=== PATIENT | male | born 1955 | race Hispanic/Latino ===

== ENCOUNTER → 2019-06-10 | Outpatient (CLI) | payer MEDICARE, OTHER | END | disposition home or self-care (01) | LOC: SHCH 15:03 | PROVIDERS: ATTEND Internal Medicine Cardiovascular Disease | DX: R09.89 Other specified symptoms and signs involving the circulatory and respiratory systems (principal) | CPT/HCPCS: 93880 ==

== ENCOUNTER 2021-06-15 05:32 | Day surgery (SDC) | payer OTHER ==
[2021-06-14 13:44] LABS: BASOPHILS % (AUTO) 0.6 % (0.0-5.0); EOSINOPHILS % (AUTO) 0.3 % (0.0-8.0); HEMATOCRIT 50.1 % (42-54); LYMPHOCYTES % (AUTO) 16.4 % (21.0-51.0); MEAN CORPUSCULAR HEMOGLOBIN 31.4 pg (27.0-33.0); MEAN CORPUSCULAR HGB CONC 33.7 g/dL (32.0-36.0); MEAN CORPUSCULAR VOLUME 93.1 fL (79-99); MONOCYTES % (AUTO) 7.5 % (3.0-13.0); NEUTROPHILS % (AUTO) 74.7 % (40.0-77.0); PLATELET COUNT (AUTO) 221 K/uL (130-400); RED BLOOD CELL COUNT(AUTO) 5.38 MIL/uL (4.50-6.20); RED CELL DISTRIBUTION WIDTH 13.3 % (11.0-15.5); WHITE BLOOD COUNT (AUTO) 8.7 K/uL (4.8-10.8)
[2021-06-14 13:48] LABS: APPEARANCE,URINE Clear (CLEAR); BILIRUBIN,URINE Negative (NEGATIVE); COLOR,URINE Yellow (YELLOW); GLUCOSE, URINE (UA) Negative (NEGATIVE); KETONES,URINE Negative (NEGATIVE); LEUKOCYTE ESTERASE ,URINE Negative (NEGATIVE); NITRATE,URINE Negative (NEGATIVE); OCCULT BLOOD,URINE Negative (NEGATIVE); PROTEIN,URINE Negative (NEGATIVE)
[2021-06-14 13:53] LABS: INR 1.04 (0.85-1.15); PROTHROMBIN TIME 11.3 SEC (9.6-11.6)
[2021-06-14 13:54] LABS: PARTIAL THROMBOPLASTIN TIME 28.1 SEC (26.3-35.5)
[2021-06-14 13:56] LABS: CREATININE 1.3 mg/dL (0.5-1.5); POTASSIUM 4.4 mmol/L (3.5-5.1)
[2021-06-14 14:35] VITALS: BP 136/73
[~2021-06-15] VITALS: Ht 165.1 cm; Wt 92.6 kg
[2021-06-15] VITALS (10 sets, daily range): BP systolic 100–141; BP diastolic 58–87
[~2021-06-15 05:32] MED LIST: ENAL10TA18 PO; VITAMIN D PO
[2021-06-15] MEDS ORDERED: 0.9% NACL 500ML IV.SOLN 500 ML IV SCH (06:00)
[2021-06-15] MEDS ORDERED: 0.9%NACL 1000ML 1,000 ML IV ONE (06:02)
[2021-06-15] MEDS ORDERED: NITROGLYCERIN 50MG VIAL IV ONE (07:12)
[2021-06-15] MEDS ORDERED: SODIUM BICARB 50MEQ 50ML VIAL 50 ML ONE (07:12)
[2021-06-15] MEDS ORDERED: IOHEXOL-350 50ML VIAL IV ONE (07:12)
[2021-06-15] MEDS ORDERED: IOHEXOL 350 MG/ML 100ML INFUS..BTL IV ONE (07:13)
[2021-06-15] MEDS ORDERED: LIDOCAINE HCL 400MG/20ML VIAL ONE (07:13)
[2021-06-15] MEDS ORDERED: MIDAZOLAM HCL 1 MG/ML 2ML VIAL ONE (07:13)
[2021-06-15] MEDS ORDERED: MEPERIDINE-PF 25 MG/ML SYG ONE (07:13)
[2021-06-15] MEDS ORDERED: IOHEXOL-350 75 ML VIAL IV ONE (08:10)
[2021-06-15] MEDS ORDERED: 0.9%NACL 10ML VIAL IVP SCH (09:00)
== END 2021-06-15 13:10 | disposition home or self-care (01) ==
LOC: DAH 05:32
PROVIDERS: ATTEND Internal Medicine Cardiovascular Disease
DX: I35.0 Nonrheumatic aortic (valve) stenosis (principal); I20.9 Angina pectoris, unspecified; J44.9 Chronic obstructive pulmonary disease, unspecified; I11.0 Hypertensive heart disease with heart failure; I50.42 Chronic combined systolic (congestive) and diastolic (congestive) heart failure; Z82.49 Family history of ischemic heart disease and other diseases of the circulatory system; Z85.038 Personal history of other malignant neoplasm of large intestine; Z92.3 Personal history of irradiation; Z92.21 Personal history of antineoplastic chemotherapy; Z79.01 Long term (current) use of anticoagulants; Z79.899 Other long term (current) drug therapy; Z98.890 Other specified postprocedural states
CPT/HCPCS: 36415; 71045; 80048; 81003; 85025; 85610; 85730; 93005; 93460; A4215; A4216; A4221; A4222; A4223 ×3; A4606; A4663; C1760; C1769 ×2; C1893; C1894; J1644; J2175; J2250; J3490 ×3; J7030; Q9965; Q9967 ×2; 99156; 99157

== ENCOUNTER → 2021-08-02 | Outpatient (CLI) | payer OTHER ==
[~2021-08-02] MED LIST changes: -ENAL10TA18 PO
[2021-08-02 12:32] LABS: CREATININE 1.3 mg/dL (0.5-1.5)
== END | disposition home or self-care (01) ==
LOC: DAH 09:49
PROVIDERS: ATTEND Internal Medicine Cardiovascular Disease
DX: I35.0 Nonrheumatic aortic (valve) stenosis (principal)
CPT/HCPCS: 36415; 82565; 84520

== ENCOUNTER → 2021-11-29 | Outpatient (CLI) | payer OTHER ==
[~2021-11-29] MED LIST changes: +AEC81 PO; +CLOP75TA14 PO; +ERGO2000 PO; +FURO-151 PO; +METO25TA6 PO; -VITAMIN D PO
== END | disposition home or self-care (01) ==
LOC: SHCH 08:46
PROVIDERS: ATTEND Internal Medicine Cardiovascular Disease
DX: I11.9 Hypertensive heart disease without heart failure (principal); I34.8 Other nonrheumatic mitral valve disorders
CPT/HCPCS: 93306

== ENCOUNTER → 2022-06-09 | Outpatient (CLI) | payer OTHER ==
[~2022-06-09] MED LIST changes: +ALBUMIN (HUMAN) 25% 200 ML IV ONE; +CLOP-31 PO; -CLOP75TA14 PO; +LIDOCAINE HCL 1% 20 ML VIAL ONE
[2022-06-09 08:25] LABS: HEMATOCRIT 44.4 % (42-54); MEAN CORPUSCULAR HEMOGLOBIN 30.4 pg (27.0-33.0); MEAN CORPUSCULAR HGB CONC 31.8 g/dL (32.0-36.0); MEAN CORPUSCULAR VOLUME 95.7 fL (79-99); PLATELET COUNT (AUTO) 149 K/uL (130-400); RED BLOOD CELL COUNT(AUTO) 4.64 MIL/uL (4.50-6.20); RED CELL DISTRIBUTION WIDTH 16.8 % (11.0-15.5)
[2022-06-09 08:50] LABS: INR 1.25 (0.85-1.15); PROTHROMBIN TIME 13.5 SEC (9.6-11.6)
[2022-06-09 08:51] LABS: PARTIAL THROMBOPLASTIN TIME 31.6 SEC (26.3-35.5)
[2022-06-09 08:54] LABS: ALBUMIN 3.2 g/dL (3.5-5.0); CREATININE 1.4 mg/dL (0.5-1.5); POTASSIUM 3.6 mmol/L (3.5-5.1); TOTAL PROTEIN, SERUM 6.9 g/dL (6.0-8.3)
[2022-06-09 08:56] LABS: LYMPHOCYTES % (MANUAL) 22 % (22-44); MAN.DIFF COMMENT-IMPRESSION MANUAL DIFFERENTIAL; MONOCYTES % (MANUAL) 10 % (2-9); PLATELET MORPHOLOGY COMMENT ADEQUATE; SEGMENTED NEUTROPHILS % 68 % (40-70)
[2022-06-09 13:34] LABS: ALBUMIN,BODY FLUID 1.2 g/dL
[2022-06-09 14:51] LABS: SPECIMENTYPE,BODY FLUID ASCITES; TOTAL VOLUME,BODY FLUID 500 mL
[2022-06-09 14:52] LABS: APPEARANCE BODY FLUID CLOUDY (CLEAR); BODY FLUID RBC 7450 /cu. mm.; BODY FLUID WBC 213 /cu. mm.; COLOR,BODY FLUID DARK YELLOW (LT YELLOW)
[2022-06-09 15:02] LABS: BF LYMPHOCYTE 41 %; BF MONOCYTE 45 %
== END | disposition home or self-care (01) ==
LOC: RAH 08:00
PROVIDERS: ATTEND Internal Medicine Gastroenterology
DX: R18.8 Other ascites (principal); I10 Essential (primary) hypertension; Z79.01 Long term (current) use of anticoagulants; Z79.899 Other long term (current) drug therapy
CPT/HCPCS: 49083; 84157; 80053; 85025; 89051; 85610; 85730; 87071; 87076; 87205; 82042; 36415; 88305; 88342; 88112; 88341; P9046; C1729

== ENCOUNTER → 2022-10-16 | Outpatient (CLI) | payer OTHER ==
[~2022-10-16] MED LIST changes: -ALBUMIN (HUMAN) 25% 200 ML IV ONE; -LIDOCAINE HCL 1% 20 ML VIAL ONE
[2022-10-16 11:27] LABS: BASOPHILS % (AUTO) 0.7 % (0.0-5.0); EOSINOPHILS % (AUTO) 0.9 % (0.0-8.0); HEMATOCRIT 28.7 % (42-54); LYMPHOCYTES % (AUTO) 17.3 % (21.0-51.0); MEAN CORPUSCULAR HEMOGLOBIN 23.2 pg (27.0-33.0); MEAN CORPUSCULAR HGB CONC 27.2 g/dL (32.0-36.0); MEAN CORPUSCULAR VOLUME 85.4 fL (79-99); NEUTROPHILS % (AUTO) 65.7 % (40.0-77.0); PLATELET COUNT (AUTO) 138 K/uL (130-400); RED BLOOD CELL COUNT(AUTO) 3.36 MIL/uL (4.50-6.20); WHITE BLOOD COUNT (AUTO) 5.6 K/uL (4.8-10.8)
== END | disposition home or self-care (01) ==
LOC: LAB 10:44
PROVIDERS: ATTEND Internal Medicine Gastroenterology
DX: J90 Pleural effusion, not elsewhere classified (principal); M47.815 Spondylosis without myelopathy or radiculopathy, thoracolumbar region; K74.60 Unspecified cirrhosis of liver
CPT/HCPCS: 36415; 71046; 82105; 85025

== ENCOUNTER 2022-10-19 13:13 | Emergency (ER) | payer OTHER ==
[~2022-10-19] VITALS: Ht 165.1 cm; Wt 93.4 kg
[2022-10-19 13:28] VITALS: BP 137/68
[2022-10-20] MEDS ORDERED: ATOR20TA65 PO (16:07)
[2022-10-20] MEDS ORDERED: METO2.5T2 PO (16:07)
== END 2022-10-19 14:03 | disposition left against medical advice (07) ==
LOC: EDH 13:13
DX: R18.8 Other ascites (principal); I10 Essential (primary) hypertension; Z90.49 Acquired absence of other specified parts of digestive tract; Z85.048 Personal history of other malignant neoplasm of rectum, rectosigmoid junction, and anus; Z79.899 Other long term (current) drug therapy

== ENCOUNTER 2022-10-20 08:09 | Inpatient (IN) | payer OTHER ==
[~2022-10-20] VITALS: Ht 172.7 cm; Wt 85.8 kg
[2022-10-20 09:35] LABS: BASOPHILS % (AUTO) 0.9 % (0.0-5.0); EOSINOPHILS % (AUTO) 0.3 % (0.0-8.0); LYMPHOCYTES % (AUTO) 16.2 % (21.0-51.0); MEAN CORPUSCULAR HEMOGLOBIN 22.9 pg (27.0-33.0); MEAN CORPUSCULAR HGB CONC 27.3 g/dL (32.0-36.0); MEAN CORPUSCULAR VOLUME 83.8 fL (79-99); MONOCYTES % (AUTO) 15.5 % (3.0-13.0); NEUTROPHILS % (AUTO) 66.8 % (40.0-77.0); NUCLEATED RED BLOOD CELLS 0.5 % (0.0-0.19); PLATELET COUNT (AUTO) 195 K/uL (130-400); RED BLOOD CELL COUNT(AUTO) 3.58 MIL/uL (4.50-6.20); RED CELL DISTRIBUTION WIDTH 19.1 % (11.0-15.5); WHITE BLOOD COUNT (AUTO) 5.8 K/uL (4.8-10.8)
[2022-10-20 09:46] LABS: INR 1.39 (0.85-1.15); PROTHROMBIN TIME 14.9 SEC (9.6-11.6)
[2022-10-20 09:47] LABS: PARTIAL THROMBOPLASTIN TIME 30.6 SEC (26.3-35.5)
[2022-10-20 09:50] LABS: ALBUMIN 2.6 g/dL (3.5-5.0); CREATININE 2.1 mg/dL (0.5-1.5); POTASSIUM 4.3 mmol/L (3.5-5.1); TOTAL PROTEIN, SERUM 6.3 g/dL (6.0-8.3)
[2022-10-20 09:56] LABS: B-TYPE NATRIURETIC PEPTIDE 1180 pg/mL (0-100)
[2022-10-20] MEDS ORDERED: MORPHINE 2 MG SYG IVP PRN (10:00)
[2022-10-20] MEDS ORDERED: ZOSYN 3.375GM +NS 50ML IVPB SCH (10:00)
[2022-10-20] MEDS ORDERED: RENAL DOSE IV PRN (10:00)
[2022-10-20] MEDS ORDERED: ACETAMINOPHEN 650 MG SUPPOSITORY RC PRN (10:00)
[2022-10-20] MEDS ORDERED: HYDRALAZINE 20MG/ML VIAL IV PRN (10:00)
[2022-10-20] MEDS ORDERED: LACTULOSE 20 GM/30 ML UDCUP PO PRN (10:00)
[2022-10-20] MEDS ORDERED: FUROSEMIDE 40MG VIAL IV SCH (10:00)
[2022-10-20] MEDS ORDERED: ONDANSETRON 4MG INJ IVP PRN (10:00)
[2022-10-20] MEDS ORDERED: CLONIDINE HCL 0.1 MG TABLET PO PRN ×2 (10:00)
[2022-10-20 10:28] LABS: ABG BASE EXCESS -1.4 mmol/L (-2.0-3.0); ABG HCO3 23.1 mmol/L (21.0-28.0); ABG OXYGEN SATURATION 91.4 % (95.0-99.0); ABG PCO2 38 mmHg (35-48)
[2022-10-20] MEDS: ZOSYN 3.375GM+NS 50ML 50 ML IVPB SCH ×3 (10:39→23:26)
[2022-10-20 10:42] LABS: APPEARANCE,URINE CLOUDY (CLEAR); BILIRUBIN,URINE 0.5 mg/dL (NEGATIVE); COLOR,URINE DARK-YELLOW (YELLOW); GLUCOSE, URINE (UA) NEGATIVE (NEGATIVE); KETONES,URINE NEGATIVE (NEGATIVE); LEUKOCYTE ESTERASE ,URINE NEGATIVE Leu/uL (NEGATIVE); NITRATE,URINE NEGATIVE (NEGATIVE); OCCULT BLOOD,URINE NEGATIVE (NEGATIVE); PH,URINE 5.5 (5.0-8.0); PROTEIN,URINE 100 mg/dL (NEGATIVE); UROBILINOGEN,URINE 6 mg/dL (0.2-1.0)
[2022-10-20 10:45] LABS: BACTERIA,URINE RARE /HPF (None Seen); MUCUS,URINE RARE LPF (None Seen); OTHER CASTS, URINE 1 /LPF (None Seen); RBC,URINE 0-1 /HPF (0-1)
[2022-10-20 10:47] LABS: AMPHET/METH SCREEN,URINE NEGATIVE (NEGATIVE); BARBITURATE SCREEN, URINE NEGATIVE (NEGATIVE); BENZODIAZEPINES SCREEN,URINE NEGATIVE (NEGATIVE); CANNABINOID SCREEN,URINE NEGATIVE (NEGATIVE); COCAINE SCREEN,URINE NEGATIVE (NEGATIVE); OPIATE SCREEN,URINE NEGATIVE (NEGATIVE); PHENCYCLIDINE SCREEN,URINE NEGATIVE (NEGATIVE)
[2022-10-20] MEDS ORDERED: 0.9%NACL 50ML IV SCH (11:00)
[2022-10-20] MEDS: INSULIN HUMULIN R 100 UNIT/ML 3ML SQ SCH ×3 (11:30→21:00)
[2022-10-20] MEDS ORDERED: LIDOCAINE HCL MPF 1% 5ML VIAL ONE (12:28)
[2022-10-20 16:07] LABS: BODY FLUID RBC 179 /cu. mm.; BODY FLUID WBC 82 /cu. mm.
[2022-10-20] MEDS ORDERED: ATOR20TA65 PO (16:07)
[2022-10-20] MEDS ORDERED: METO2.5T2 PO (16:07)
[2022-10-20 16:38] LABS: BF LYMPHOCYTE 34 %; BF MESOTHELIAL 19 %; BF MONOCYTE 6 %
[2022-10-20 16:41] LABS: SPECIMENTYPE,BODY FLUID PLEURAL
[2022-10-20 16:42] LABS: APPEARANCE BODY FLUID CLEAR (CLEAR); COLOR,BODY FLUID YELLOW (LT YELLOW); TOTAL VOLUME,BODY FLUID 1800 mL
[2022-10-20] MEDS: FUROSEMIDE 20MG VIAL IV SCH (16:43)
[2022-10-20 20:00] VITALS: BP 117/54
[2022-10-20] MEDS: FAMOTIDINE 20MG TAB PO SCH (23:25)
[2022-10-20] MEDS: METOPROLOL TARTRATE 25 MG TAB PO SCH (23:26)
[2022-10-21] VITALS (7 sets, daily range): BP systolic 109–121; BP diastolic 41–53
[2022-10-21] MEDS: FUROSEMIDE 20MG VIAL IV SCH ×3 (00:21→16:02)
[2022-10-21 06:38] LABS: BASOPHILS % (AUTO) 0.5 % (0.0-5.0); EOSINOPHILS % (AUTO) 0.4 % (0.0-8.0); HEMATOCRIT 28.5 % (42-54); LYMPHOCYTES % (AUTO) 11.3 % (21.0-51.0); MEAN CORPUSCULAR HEMOGLOBIN 23.1 pg (27.0-33.0); MEAN CORPUSCULAR HGB CONC 27.4 g/dL (32.0-36.0); MEAN CORPUSCULAR VOLUME 84.3 fL (79-99); MONOCYTES % (AUTO) 14.7 % (3.0-13.0); NEUTROPHILS % (AUTO) 72.9 % (40.0-77.0); NUCLEATED RED BLOOD CELLS 0.2 % (0.0-0.19); PLATELET COUNT (AUTO) 184 K/uL (130-400); RED BLOOD CELL COUNT(AUTO) 3.38 MIL/uL (4.50-6.20); RED CELL DISTRIBUTION WIDTH 18.7 % (11.0-15.5); WHITE BLOOD COUNT (AUTO) 8.4 K/uL (4.8-10.8)
[2022-10-21 07:03] LABS: % IRON SATURATION 3.5 % (30-44)
[2022-10-21 07:08] LABS: CREATININE 2.2 mg/dL (0.5-1.5); PHOSPHORUS 4.1 mg/dL (2.5-4.9); POTASSIUM 3.7 mmol/L (3.5-5.1); THYROID STIMULATING HORMONE 2.12 uIU/mL (0.36-3.74); URIC ACID 6.5 mg/dL (2.6-7.2)
[2022-10-21] MEDS: INSULIN HUMULIN R 100 UNIT/ML 3ML SQ SCH ×4 (07:30→21:00)
[2022-10-21 08:40] LABS: AMMONIA < 10 umol/L (11-32); THYROID STIMULATING HORMONE 2.21 uIU/mL (0.36-3.74)
[2022-10-21] MEDS: ASPIRIN 81 MG EC TAB PO SCH (08:52)
[2022-10-21] MEDS: METOLAZONE 2.5 MG TABLET PO SCH (08:52)
[2022-10-21] MEDS: POLYETHYLENE GLYCOL 3350 17 GM POWD.PACK PO SCH (08:52)
[2022-10-21] MEDS: ATORVASTATIN 20 MG TABLET PO SCH (08:52)
[2022-10-21] MEDS: METOPROLOL TARTRATE 25 MG TAB PO SCH ×2 (08:52→20:37)
[2022-10-21] MEDS: ENOXAPARIN SODIUM 30 MG/0.3 ML SQ SCH (08:53)
[2022-10-21] MEDS ORDERED: CLOPIDOGREL 75MG TAB PO SCH (09:00)
[2022-10-21] MEDS: ZOSYN 3.375GM+NS 50ML 50 ML IVPB SCH ×2 (10:51→18:12)
[2022-10-21] MEDS ORDERED: METOLAZONE 2.5 MG TABLET PO ONE (11:00)
[2022-10-21 17:43] LABS: APPEARANCE,URINE CLEAR (CLEAR); BILIRUBIN,URINE NEGATIVE (NEGATIVE); COLOR,URINE LIGHT-YELLOW (YELLOW); GLUCOSE, URINE (UA) NEGATIVE (NEGATIVE); KETONES,URINE NEGATIVE (NEGATIVE); LEUKOCYTE ESTERASE ,URINE NEGATIVE Leu/uL (NEGATIVE); NITRATE,URINE NEGATIVE (NEGATIVE); PROTEIN,URINE NEGATIVE (NEGATIVE); UROBILINOGEN,URINE 0.2 mg/dL (0.2-1.0)
[2022-10-21 18:31] LABS: WBC,URINE 0-1 /HPF (0-1)
[2022-10-21] MEDS: FAMOTIDINE 20MG TAB PO SCH (20:38)
[2022-10-22] VITALS: BP 125/43
[2022-10-22] MEDS: FUROSEMIDE 20MG VIAL IV SCH ×3 (00:34→20:11)
[2022-10-22] MEDS: ZOSYN 3.375GM+NS 50ML 50 ML IVPB SCH ×3 (03:54→17:39)
[2022-10-22 04:00] VITALS: BP 114/45
[2022-10-22 06:27] LABS: HEMATOCRIT 26.5 % (42-54); MEAN CORPUSCULAR HEMOGLOBIN 22.9 pg (27.0-33.0); MEAN CORPUSCULAR HGB CONC 26.8 g/dL (32.0-36.0); MEAN CORPUSCULAR VOLUME 85.5 fL (79-99); NUCLEATED RED BLOOD CELLS 0.3 % (0.0-0.19); PLATELET COUNT (AUTO) 162 K/uL (130-400); RED CELL DISTRIBUTION WIDTH 18.6 % (11.0-15.5); WHITE BLOOD COUNT (AUTO) 7.3 K/uL (4.8-10.8)
[2022-10-22 06:39] LABS: ALBUMIN 2.4 g/dL (3.5-5.0); CREATININE 2.4 mg/dL (0.5-1.5); MAGNESIUM 1.9 mg/dL (1.80-2.40); PHOSPHORUS 4.4 mg/dL (2.5-4.9); POTASSIUM 3.4 mmol/L (3.5-5.1); TOTAL PROTEIN, SERUM 5.6 g/dL (6.0-8.3)
[2022-10-22] MEDS: INSULIN HUMULIN R 100 UNIT/ML 3ML SQ SCH ×4 (06:56→20:12)
[2022-10-22 07:20] VITALS: BP 114/41
[2022-10-22 08:36] LABS: LYMPHOCYTES % (MANUAL) 10 % (22-44); MONOCYTES % (MANUAL) 12 % (2-9); SEGMENTED NEUTROPHILS % 78 % (40-70)
[2022-10-22 08:37] LABS: MAN.DIFF COMMENT-IMPRESSION MANUAL DIFFERENTIAL; PLATELET MORPHOLOGY COMMENT ADEQUATE
[2022-10-22] MEDS: Vitamin B Complex/Vit C/Folic Acid PO SCH (09:48)
[2022-10-22] MEDS: ATORVASTATIN 20 MG TABLET PO SCH (09:48)
[2022-10-22] MEDS: POLYETHYLENE GLYCOL 3350 17 GM POWD.PACK PO SCH (09:48)
[2022-10-22] MEDS: ENOXAPARIN SODIUM 30 MG/0.3 ML SQ SCH (09:48)
[2022-10-22] MEDS: METOPROLOL TARTRATE 25 MG TAB PO SCH ×2 (09:49→20:07)
[2022-10-22] MEDS: METOLAZONE 2.5 MG TABLET PO SCH (09:49)
[2022-10-22] MEDS: ASPIRIN 81 MG EC TAB PO SCH (09:49)
[2022-10-22] MEDS ORDERED: LIDOCAINE HCL-MPF 1% 2ML VIAL IV PRN (15:00)
[2022-10-22] MEDS ORDERED: POTASSIUM CHLORIDE 10MEQ/100ML 100 ML IV PRN (15:00)
[2022-10-22] MEDS ORDERED: IRON SUCROSE COMPLEX 100 MG/5 ML VIAL IVP SCH (15:00)
[2022-10-22] MEDS: KCL 20 MEQ ERTAB PO PRN ×2 (15:33→18:49)
[2022-10-22 16:06] VITALS: BP 111/41
[2022-10-22] MEDS ORDERED: COMPOUND IV MISC 1 EACH IVSOLN MISC PRN (16:30)
[2022-10-22] MEDS ORDERED: OCTREOTIDE ACETATE 100 MCG/ML AMP IV SCH (17:00)
[2022-10-22 20:00] VITALS: BP 122/58
[2022-10-22] MEDS: MIDODRINE HCL 5 MG TABLET PO SCH (20:07)
[2022-10-22] MEDS: FAMOTIDINE 20MG TAB PO SCH (20:07)
[2022-10-22] MEDS: IRON SUCROSE COMPLEX 300 MG in 0.9% NACL 250ML 250 ML IVP SCH (20:08)
[2022-10-23] VITALS (7 sets, daily range): BP systolic 90–139; BP diastolic 42–60
[2022-10-23] MEDS: ZOSYN 3.375GM+NS 50ML 50 ML IVPB SCH ×3 (01:31→21:39)
[2022-10-23 05:49] LABS: BASOPHILS % (AUTO) 0.7 % (0.0-5.0); EOSINOPHILS % (AUTO) 0.3 % (0.0-8.0); HEMATOCRIT 28.6 % (42-54); LYMPHOCYTES % (AUTO) 8.8 % (21.0-51.0); MEAN CORPUSCULAR HEMOGLOBIN 22.6 pg (27.0-33.0); MEAN CORPUSCULAR HGB CONC 26.6 g/dL (32.0-36.0); MEAN CORPUSCULAR VOLUME 84.9 fL (79-99); MONOCYTES % (AUTO) 20.6 % (3.0-13.0); NEUTROPHILS % (AUTO) 69.1 % (40.0-77.0); NUCLEATED RED BLOOD CELLS 0.8 % (0.0-0.19); PLATELET COUNT (AUTO) 229 K/uL (130-400); RED BLOOD CELL COUNT(AUTO) 3.37 MIL/uL (4.50-6.20); RED CELL DISTRIBUTION WIDTH 18.9 % (11.0-15.5); WHITE BLOOD COUNT (AUTO) 7.5 K/uL (4.8-10.8)
[2022-10-23 06:04] LABS: CREATININE 2.8 mg/dL (0.5-1.5); PHOSPHORUS 5.5 mg/dL (2.5-4.9); POTASSIUM 4.2 mmol/L (3.5-5.1)
[2022-10-23] MEDS: INSULIN HUMULIN R 100 UNIT/ML 3ML SQ SCH ×4 (06:29→21:00)
[2022-10-23] MEDS: METOPROLOL TARTRATE 25 MG TAB PO SCH ×2 (09:00→21:37)
[2022-10-23] MEDS: Vitamin B Complex/Vit C/Folic Acid PO SCH (10:37)
[2022-10-23] MEDS: ENOXAPARIN SODIUM 30 MG/0.3 ML SQ SCH (10:37)
[2022-10-23] MEDS: ASPIRIN 81 MG EC TAB PO SCH (10:38)
[2022-10-23] MEDS: POLYETHYLENE GLYCOL 3350 17 GM POWD.PACK PO SCH (10:38)
[2022-10-23] MEDS: METOLAZONE 2.5 MG TABLET PO SCH (10:39)
[2022-10-23] MEDS: MIDODRINE HCL 5 MG TABLET PO SCH ×3 (10:39→21:37)
[2022-10-23] MEDS: ATORVASTATIN 20 MG TABLET PO SCH (10:39)
[2022-10-23] MEDS: FUROSEMIDE 20MG VIAL IV SCH ×2 (10:54→21:38)
[2022-10-23] MEDS: FAMOTIDINE 20MG TAB PO SCH (21:37)
[2022-10-23] MEDS: IRON SUCROSE COMPLEX 300 MG in 0.9% NACL 250ML 250 ML IVP SCH (22:10)
[2022-10-23 22:13] LABS: PROTEIN,URINE RANDOM 38.3 mg/dL (0-11.9)
[2022-10-24 04:01] VITALS: BP 128/49
[2022-10-24] MEDS: ZOSYN 3.375GM+NS 50ML 50 ML IVPB SCH (04:46)
[2022-10-24 05:24] LABS: HEMATOCRIT 28.4 % (42-54); MEAN CORPUSCULAR HEMOGLOBIN 22.8 pg (27.0-33.0); MEAN CORPUSCULAR HGB CONC 26.8 g/dL (32.0-36.0); PLATELET COUNT (AUTO) 267 K/uL (130-400); RED BLOOD CELL COUNT(AUTO) 3.34 MIL/uL (4.50-6.20); RED CELL DISTRIBUTION WIDTH 19.3 % (11.0-15.5); WHITE BLOOD COUNT (AUTO) 8.2 K/uL (4.8-10.8)
[2022-10-24 05:39] LABS: INR 1.51 (0.85-1.15); PROTHROMBIN TIME 16.1 SEC (9.6-11.6)
[2022-10-24 05:47] LABS: ALBUMIN 2.4 g/dL (3.5-5.0); CREATININE 2.9 mg/dL (0.5-1.5); PHOSPHORUS 5.2 mg/dL (2.5-4.9); TOTAL PROTEIN, SERUM 5.8 g/dL (6.0-8.3)
[2022-10-24 05:52] LABS: POTASSIUM 2.9 mmol/L (3.5-5.1)
[2022-10-24] MEDS: KCL 20 MEQ ERTAB PO PRN (05:59)
[2022-10-24] MEDS: INSULIN HUMULIN R 100 UNIT/ML 3ML SQ SCH ×4 (06:22→21:00)
[2022-10-24 07:13] LABS: LYMPHOCYTES % (MANUAL) 15 % (22-44); METAMYELOCYTES % 2 % (0-0); MONOCYTES % (MANUAL) 15 % (2-9); SEGMENTED NEUTROPHILS % 68 % (40-70)
[2022-10-24 07:14] LABS: MAN.DIFF COMMENT-IMPRESSION MANUAL DIFFERENTIAL; PLATELET MORPHOLOGY COMMENT ADEQUATE
[2022-10-24 08:00] VITALS: BP 100/52
[2022-10-24] MEDS ORDERED: OCTREOTIDE ACETATE 100 MCG/ML AMP SQ SCH (09:30)
[2022-10-24] MEDS: ATORVASTATIN 20 MG TABLET PO SCH (09:36)
[2022-10-24] MEDS: METOPROLOL TARTRATE 25 MG TAB PO SCH ×2 (09:36→22:48)
[2022-10-24] MEDS: METOLAZONE 2.5 MG TABLET PO SCH (09:36)
[2022-10-24] MEDS: POLYETHYLENE GLYCOL 3350 17 GM POWD.PACK PO SCH (09:37)
[2022-10-24] MEDS: MIDODRINE HCL 5 MG TABLET PO SCH ×3 (09:37→22:49)
[2022-10-24] MEDS: ASPIRIN 81 MG EC TAB PO SCH (09:37)
[2022-10-24] MEDS: Vitamin B Complex/Vit C/Folic Acid PO SCH (09:37)
[2022-10-24] MEDS: ENOXAPARIN SODIUM 30 MG/0.3 ML SQ SCH (09:45)
[2022-10-24] MEDS: FUROSEMIDE 20MG VIAL IV SCH ×2 (09:53→22:49)
[2022-10-24] MEDS: POTASSIUM CHLORIDE 10% ELIXIR 20 MEQ/15 ML UDCUP PO PRN ×2 (09:53→13:34)
[2022-10-24 12:00] VITALS: BP 117/40
[2022-10-24] MEDS: OCTREOTIDE ACETATE 100 MCG/ML AMP SQ SCH ×2 (12:36→18:11)
[2022-10-24 16:00] VITALS: BP 114/56
[2022-10-24] MEDS: ALBUMIN (HUMAN) 25% 50 ML IV SCH (18:30)
[2022-10-24 20:00] VITALS: BP 116/63
[2022-10-24] MEDS: IRON SUCROSE COMPLEX 300 MG in 0.9% NACL 250ML 250 ML IVP SCH (22:49)
[2022-10-24] MEDS: FAMOTIDINE 20MG TAB PO SCH (22:49)
[2022-10-25] VITALS: BP 108/66
[2022-10-25] MEDS: POTASSIUM CHLORIDE 10% ELIXIR 20 MEQ/15 ML UDCUP PO PRN (00:26)
[2022-10-25] MEDS: OCTREOTIDE ACETATE 100 MCG/ML AMP SQ SCH ×3 (02:04→17:34)
[2022-10-25] MEDS: ALBUMIN (HUMAN) 25% 50 ML IV SCH ×3 (02:13→17:33)
[2022-10-25 04:00] VITALS: BP 116/49
[2022-10-25 05:39] LABS: BASOPHILS % (AUTO) 0.4 % (0.0-5.0); HEMATOCRIT 28.4 % (42-54); LYMPHOCYTES % (AUTO) 9.8 % (21.0-51.0); MEAN CORPUSCULAR HEMOGLOBIN 23.1 pg (27.0-33.0); MEAN CORPUSCULAR HGB CONC 27.1 g/dL (32.0-36.0); MEAN CORPUSCULAR VOLUME 85.3 fL (79-99); MONOCYTES % (AUTO) 18.9 % (3.0-13.0); NEUTROPHILS % (AUTO) 68.8 % (40.0-77.0); PLATELET COUNT (AUTO) 285 K/uL (130-400); RED BLOOD CELL COUNT(AUTO) 3.33 MIL/uL (4.50-6.20); RED CELL DISTRIBUTION WIDTH 19.3 % (11.0-15.5); WHITE BLOOD COUNT (AUTO) 9.1 K/uL (4.8-10.8)
[2022-10-25] MEDS: INSULIN HUMULIN R 100 UNIT/ML 3ML SQ SCH ×4 (05:51→21:00)
[2022-10-25 06:01] LABS: ALBUMIN 2.7 g/dL (3.5-5.0); CREATININE 3.4 mg/dL (0.5-1.5); MAGNESIUM 2.1 mg/dL (1.80-2.40); PHOSPHORUS 5.7 mg/dL (2.5-4.9); POTASSIUM 3.5 mmol/L (3.5-5.1)
[2022-10-25 06:31] LABS: BASOPHILS % (MANUAL) 1 % (0-2); EOSINOPHILS % (MANUAL) 1 % (1-6); LYMPHOCYTES % (MANUAL) 17 % (22-44); MAN.DIFF COMMENT-IMPRESSION MANUAL DIFFERENTIAL; MONOCYTES % (MANUAL) 2 % (2-9); PLATELET MORPHOLOGY COMMENT ADEQUATE; SEGMENTED NEUTROPHILS % 79 % (40-70)
[2022-10-25] MEDS: METOPROLOL TARTRATE 25 MG TAB PO SCH ×3 (09:00→21:00)
[2022-10-25] MEDS: POLYETHYLENE GLYCOL 3350 17 GM POWD.PACK PO SCH (09:00)
[2022-10-25] MEDS: ASPIRIN 81 MG EC TAB PO SCH (10:56)
[2022-10-25] MEDS: ATORVASTATIN 20 MG TABLET PO SCH (10:57)
[2022-10-25] MEDS: METOLAZONE 2.5 MG TABLET PO SCH (10:57)
[2022-10-25] MEDS: Vitamin B Complex/Vit C/Folic Acid PO SCH (10:57)
[2022-10-25] MEDS: ENOXAPARIN SODIUM 30 MG/0.3 ML SQ SCH (10:58)
[2022-10-25] MEDS: FUROSEMIDE 20MG VIAL IV SCH ×2 (10:59→21:21)
[2022-10-25] MEDS: MIDODRINE HCL 5 MG TABLET PO SCH ×3 (11:04→21:21)
[2022-10-25 16:00] VITALS: BP 148/82
[2022-10-25 20:00] VITALS: BP 130/42
[2022-10-25] MEDS: FAMOTIDINE 20MG TAB PO SCH (21:20)
[2022-10-26] VITALS (7 sets, daily range): BP systolic 102–122; BP diastolic 30–88
[2022-10-26] MEDS: ALBUMIN (HUMAN) 25% 50 ML IV SCH ×2 (01:44→09:48)
[2022-10-26] MEDS: OCTREOTIDE ACETATE 100 MCG/ML AMP SQ SCH ×3 (01:47→21:18)
[2022-10-26 05:47] LABS: HEMATOCRIT 27.4 % (42-54); MEAN CORPUSCULAR HEMOGLOBIN 23.5 pg (27.0-33.0); MEAN CORPUSCULAR HGB CONC 26.6 g/dL (32.0-36.0); MEAN CORPUSCULAR VOLUME 88.1 fL (79-99); NUCLEATED RED BLOOD CELLS 8.1 % (0.0-0.19); PLATELET COUNT (AUTO) 233 K/uL (130-400); RED BLOOD CELL COUNT(AUTO) 3.11 MIL/uL (4.50-6.20); RED CELL DISTRIBUTION WIDTH 19.7 % (11.0-15.5); WHITE BLOOD COUNT (AUTO) 9.6 K/uL (4.8-10.8)
[2022-10-26] MEDS: INSULIN HUMULIN R 100 UNIT/ML 3ML SQ SCH ×4 (06:09→19:51)
[2022-10-26 06:42] LABS: LYMPHOCYTES % (MANUAL) 13 % (22-44); MAN.DIFF COMMENT-IMPRESSION MANUAL DIFFERENTIAL; MONOCYTES % (MANUAL) 11 % (2-9); PLATELET MORPHOLOGY COMMENT ADEQUATE; SEGMENTED NEUTROPHILS % 76 % (40-70)
[2022-10-26 07:10] LABS: CREATININE 4.3 mg/dL (0.5-1.5); MAGNESIUM 2.2 mg/dL (1.80-2.40)
[2022-10-26] MEDS: METOPROLOL TARTRATE 25 MG TAB PO SCH (09:00)
[2022-10-26] MEDS: POLYETHYLENE GLYCOL 3350 17 GM POWD.PACK PO SCH (09:00)
[2022-10-26] MEDS: ASPIRIN 81 MG EC TAB PO SCH (09:48)
[2022-10-26] MEDS: Vitamin B Complex/Vit C/Folic Acid PO SCH (09:49)
[2022-10-26] MEDS: ATORVASTATIN 20 MG TABLET PO SCH (09:49)
[2022-10-26] MEDS: METOLAZONE 2.5 MG TABLET PO SCH (09:49)
[2022-10-26] MEDS: MIDODRINE HCL 5 MG TABLET PO SCH ×3 (09:50→19:27)
[2022-10-26] MEDS: ENOXAPARIN SODIUM 30 MG/0.3 ML SQ SCH (09:50)
[2022-10-26] MEDS: FUROSEMIDE 40MG VIAL IV SCH (15:51)
[2022-10-26] MEDS: FAMOTIDINE 20MG TAB PO SCH (19:26)
[2022-10-27] MEDS ORDERED: MORPHINE 2 MG SYG IVP PRN (01:30)
[2022-10-27] MEDS: FUROSEMIDE 40MG VIAL IV SCH ×2 (02:51→17:07)
[2022-10-27 04:01] VITALS: BP 135/55
[2022-10-27] MEDS: OCTREOTIDE ACETATE 100 MCG/ML AMP SQ SCH ×3 (04:24→17:07)
[2022-10-27] MEDS: INSULIN HUMULIN R 100 UNIT/ML 3ML SQ SCH ×4 (06:00→21:00)
[2022-10-27 06:07] LABS: HEMATOCRIT 25.5 % (42-54); MEAN CORPUSCULAR HGB CONC 27.8 g/dL (32.0-36.0); MEAN CORPUSCULAR VOLUME 86.1 fL (79-99); PLATELET COUNT (AUTO) 220 K/uL (130-400); RED BLOOD CELL COUNT(AUTO) 2.96 MIL/uL (4.50-6.20); RED CELL DISTRIBUTION WIDTH 20.7 % (11.0-15.5); WHITE BLOOD COUNT (AUTO) 9.3 K/uL (4.8-10.8)
[2022-10-27 06:20] LABS: INR 1.8 (0.85-1.15)
[2022-10-27 06:22] LABS: ALBUMIN 2.9 g/dL (3.5-5.0); CREATININE 5.1 mg/dL (0.5-1.5); MAGNESIUM 2.4 mg/dL (1.80-2.40); POTASSIUM 3.9 mmol/L (3.5-5.1); TOTAL PROTEIN, SERUM 5.9 g/dL (6.0-8.3)
[2022-10-27 07:02] LABS: BAND NEUTROPHILS % (MANUAL) 2 % (0-2); BASOPHILS % (MANUAL) 1 % (0-2); EOSINOPHILS % (MANUAL) 1 % (1-6); LYMPHOCYTES % (MANUAL) 6 % (22-44); MAN.DIFF COMMENT-IMPRESSION MANUAL DIFFERENTIAL; MONOCYTES % (MANUAL) 16 % (2-9); PLATELET MORPHOLOGY COMMENT ADEQUATE; REACTIVE LYMPHOCYTES 3 % (0-0); SEGMENTED NEUTROPHILS % 71 % (40-70)
[2022-10-27 08:08] VITALS: BP 119/40
[2022-10-27] MEDS: ATORVASTATIN 20 MG TABLET PO SCH (11:30)
[2022-10-27] MEDS: ENOXAPARIN SODIUM 30 MG/0.3 ML SQ SCH (11:30)
[2022-10-27] MEDS: MIDODRINE HCL 5 MG TABLET PO SCH ×3 (11:31→21:09)
[2022-10-27] MEDS: Vitamin B Complex/Vit C/Folic Acid PO SCH (11:31)
[2022-10-27] MEDS: METOLAZONE 2.5 MG TABLET PO SCH (11:32)
[2022-10-27] MEDS: ASPIRIN 81 MG EC TAB PO SCH (11:33)
[2022-10-27] MEDS: POLYETHYLENE GLYCOL 3350 17 GM POWD.PACK PO SCH (11:35)
[2022-10-27 12:22] VITALS: BP 140/39
[2022-10-27 18:25] VITALS: BP 140/55
[2022-10-27 20:33] LABS: HEMATOCRIT 24.3 % (42-54); MEAN CORPUSCULAR HEMOGLOBIN 24.2 pg (27.0-33.0); MEAN CORPUSCULAR VOLUME 86.5 fL (79-99); NUCLEATED RED BLOOD CELLS 2.7 % (0.0-0.19); PLATELET COUNT (AUTO) 180 K/uL (130-400); RED BLOOD CELL COUNT(AUTO) 2.81 MIL/uL (4.50-6.20); RED CELL DISTRIBUTION WIDTH 21.7 % (11.0-15.5); WHITE BLOOD COUNT (AUTO) 9.1 K/uL (4.8-10.8)
[2022-10-27 20:48] LABS: BASOPHILS % (AUTO) 0.2 % (0.0-5.0); EOSINOPHILS % (AUTO) 0.2 % (0.0-8.0); MONOCYTES % (AUTO) 18.6 % (3.0-13.0); NEUTROPHILS % (AUTO) 72.2 % (40.0-77.0)
[2022-10-27 21:08] LABS: BAND NEUTROPHILS % (MANUAL) 3 % (0-2); LYMPHOCYTES % (MANUAL) 12 % (22-44); MAN.DIFF COMMENT-IMPRESSION MANUAL DIFFERENTIAL; MONOCYTES % (MANUAL) 9 % (2-9); REACTIVE LYMPHOCYTES 1 % (0-0); SEGMENTED NEUTROPHILS % 75 % (40-70)
[2022-10-27] MEDS: FAMOTIDINE 20MG TAB PO SCH (21:09)
[2022-10-27 21:39] VITALS: BP 133/50
[2022-10-27 23:46] VITALS: BP 150/64
[2022-10-28] VITALS (8 sets, daily range): BP systolic 136–152; BP diastolic 46–76
[2022-10-28] MEDS: OCTREOTIDE ACETATE 100 MCG/ML AMP SQ SCH ×3 (01:27→16:43)
[2022-10-28] MEDS ORDERED: FUROSEMIDE 40MG VIAL IV ONE (02:00)
[2022-10-28] MEDS: FUROSEMIDE 40MG VIAL IV SCH ×2 (03:55→15:07)
[2022-10-28 05:51] LABS: HEMATOCRIT 26.9 % (42-54); MEAN CORPUSCULAR HEMOGLOBIN 25.4 pg (27.0-33.0); MEAN CORPUSCULAR HGB CONC 30.5 g/dL (32.0-36.0); MEAN CORPUSCULAR VOLUME 83.3 fL (79-99); NUCLEATED RED BLOOD CELLS 2.2 % (0.0-0.19); RED BLOOD CELL COUNT(AUTO) 3.23 MIL/uL (4.50-6.20); RED CELL DISTRIBUTION WIDTH 21.4 % (11.0-15.5); WHITE BLOOD COUNT (AUTO) 7.6 K/uL (4.8-10.8)
[2022-10-28 06:11] LABS: ALBUMIN 2.8 g/dL (3.5-5.0); CREATININE 5.6 mg/dL (0.5-1.5); MAGNESIUM 2.4 mg/dL (1.80-2.40); POTASSIUM 3.6 mmol/L (3.5-5.1); TOTAL PROTEIN, SERUM 5.8 g/dL (6.0-8.3)
[2022-10-28] MEDS: INSULIN HUMULIN R 100 UNIT/ML 3ML SQ SCH ×4 (06:20→19:59)
[2022-10-28] MEDS: ASPIRIN 81 MG EC TAB PO SCH (09:15)
[2022-10-28] MEDS: POLYETHYLENE GLYCOL 3350 17 GM POWD.PACK PO SCH (09:15)
[2022-10-28] MEDS: METOLAZONE 2.5 MG TABLET PO SCH (09:15)
[2022-10-28] MEDS: Vitamin B Complex/Vit C/Folic Acid PO SCH (09:15)
[2022-10-28] MEDS: MIDODRINE HCL 5 MG TABLET PO SCH ×3 (09:15→20:04)
[2022-10-28] MEDS: PANTOPRAZOLE 40 MG TAB DR PO SCH ×2 (09:15→20:04)
[2022-10-28] MEDS: ATORVASTATIN 20 MG TABLET PO SCH (09:15)
[2022-10-28] MEDS: ENOXAPARIN SODIUM 30 MG/0.3 ML SQ SCH (09:16)
[2022-10-29] VITALS (37 sets, daily range): BP systolic 109–181; BP diastolic 40–90
[2022-10-29] MEDS: OCTREOTIDE ACETATE 100 MCG/ML AMP SQ SCH ×3 (00:58→15:46)
[2022-10-29] MEDS: FUROSEMIDE 40MG VIAL IV SCH ×2 (02:32→15:46)
[2022-10-29 05:42] LABS: MEAN CORPUSCULAR HEMOGLOBIN 25.2 pg (27.0-33.0); MEAN CORPUSCULAR HGB CONC 28.2 g/dL (32.0-36.0); MEAN CORPUSCULAR VOLUME 89.2 fL (79-99); NUCLEATED RED BLOOD CELLS 1.9 % (0.0-0.19); RED BLOOD CELL COUNT(AUTO) 3.14 MIL/uL (4.50-6.20); RED CELL DISTRIBUTION WIDTH 22.8 % (11.0-15.5); WHITE BLOOD COUNT (AUTO) 8.3 K/uL (4.8-10.8)
[2022-10-29] MEDS: INSULIN HUMULIN R 100 UNIT/ML 3ML SQ SCH ×4 (05:44→20:54)
[2022-10-29 05:59] LABS: ALBUMIN 2.9 g/dL (3.5-5.0); CREATININE 6.2 mg/dL (0.5-1.5); MAGNESIUM 2.5 mg/dL (1.80-2.40); POTASSIUM 3.9 mmol/L (3.5-5.1); TOTAL PROTEIN, SERUM 6.1 g/dL (6.0-8.3)
[2022-10-29] MEDS: MIDODRINE HCL 5 MG TABLET PO SCH ×3 (08:32→19:52)
[2022-10-29] MEDS: Vitamin B Complex/Vit C/Folic Acid PO SCH (08:35)
[2022-10-29] MEDS: ATORVASTATIN 20 MG TABLET PO SCH (08:36)
[2022-10-29] MEDS: ASPIRIN 81 MG EC TAB PO SCH (08:36)
[2022-10-29] MEDS: PANTOPRAZOLE 40 MG TAB DR PO SCH ×2 (08:36→20:54)
[2022-10-29] MEDS: POLYETHYLENE GLYCOL 3350 17 GM POWD.PACK PO SCH (08:37)
[2022-10-29] MEDS: METOLAZONE 2.5 MG TABLET PO SCH (08:37)
[2022-10-29] MEDS: ENOXAPARIN SODIUM 30 MG/0.3 ML SQ SCH (08:38)
[2022-10-29 10:27] LABS: ABG BASE EXCESS -2.1 mmol/L (-2.0-3.0); ABG HCO3 26.4 mmol/L (21.0-28.0); ABG OXYGEN SATURATION 84.1 % (95.0-99.0); ABG PCO2 61 mmHg (35-48)
[2022-10-29 12:19] LABS: INR 1.35 (0.85-1.15); PROTHROMBIN TIME 14.5 SEC (9.6-11.6)
[2022-10-29 12:20] LABS: PARTIAL THROMBOPLASTIN TIME 50.5 SEC (26.3-35.5)
[2022-10-29] MEDS ORDERED: LIDOCAINE HCL MPF 1% 5ML VIAL ONE (15:07)
[2022-10-29 15:32] LABS: ABG BASE EXCESS -2.2 mmol/L (-2.0-3.0); ABG HCO3 26.4 mmol/L (21.0-28.0); ABG OXYGEN SATURATION 97.1 % (95.0-99.0); ABG PCO2 62 mmHg (35-48)
[2022-10-29] MEDS ORDERED: CEFEPIME HCL 2 GM VIAL IVP SCH ×2 (16:00→16:30)
[2022-10-29] MEDS ORDERED: LACTULOSE 20 GM/30 ML UDCUP PO SCH (17:30)
[2022-10-29 19:00] LABS: ALBUMIN 3.3 g/dL (3.5-5.0); CREATININE 4.4 mg/dL (0.5-1.5); HEMATOCRIT 30.4 % (42-54)
[2022-10-29 19:19] LABS: % IRON SATURATION 14.4 % (30-44)
[2022-10-29 19:39] LABS: ABG BASE EXCESS 1.7 mmol/L (-2.0-3.0); ABG HCO3 28.3 mmol/L (21.0-28.0); ABG OXYGEN SATURATION 95.7 % (95.0-99.0); ABG PCO2 55 mmHg (35-48)
[2022-10-29] MEDS: LACTULOSE 20 GM/30 ML UDCUP PO SCH ×2 (19:52→19:56)
[2022-10-29] MEDS: CEFEPIME HCL 2 GM VIAL IVP SCH (19:52)
[2022-10-29] MEDS ORDERED: ALBUMIN (HUMAN) 25% 100 ML IV ONE ×2 (21:42→22:00)
[2022-10-30] VITALS (43 sets, daily range): BP systolic 113–150; BP diastolic 40–67
[2022-10-30] MEDS: OCTREOTIDE ACETATE 100 MCG/ML AMP SQ SCH ×3 (00:49→17:33)
[2022-10-30] MEDS: FUROSEMIDE 40MG VIAL IV SCH ×2 (02:31→14:31)
[2022-10-30 03:23] LABS: HEPATITIS B SURFACE ANTIGEN Non-Reactive (Nonreactive)
[2022-10-30 04:14] LABS: ABG BASE EXCESS 1.4 mmol/L (-2.0-3.0); ABG OXYGEN SATURATION 90.1 % (95.0-99.0); ABG PCO2 57 mmHg (35-48)
[2022-10-30 04:34] LABS: INR 1.39 (0.85-1.15); PROTHROMBIN TIME 14.9 SEC (9.6-11.6)
[2022-10-30 04:35] LABS: PARTIAL THROMBOPLASTIN TIME 53.2 SEC (26.3-35.5)
[2022-10-30 04:54] LABS: ALBUMIN 2.7 g/dL (3.5-5.0); CREATININE 5.4 mg/dL (0.5-1.5); MAGNESIUM 2.3 mg/dL (1.80-2.40); POTASSIUM 3.8 mmol/L (3.5-5.1); TOTAL PROTEIN, SERUM 5.4 g/dL (6.0-8.3)
[2022-10-30] MEDS ORDERED: LACTULOSE 20 GM/30 ML UDCUP PO ONE (05:00)
[2022-10-30] MEDS: INSULIN HUMULIN R 100 UNIT/ML 3ML SQ SCH ×4 (05:20→20:06)
[2022-10-30 05:31] LABS: HEMATOCRIT 23.4 % (42-54); MEAN CORPUSCULAR HEMOGLOBIN 25.9 pg (27.0-33.0); MEAN CORPUSCULAR HGB CONC 28.6 g/dL (32.0-36.0); MEAN CORPUSCULAR VOLUME 90.3 fL (79-99); NUCLEATED RED BLOOD CELLS 0.8 % (0.0-0.19); RED BLOOD CELL COUNT(AUTO) 2.59 MIL/uL (4.50-6.20); RED CELL DISTRIBUTION WIDTH 24.2 % (11.0-15.5); WHITE BLOOD COUNT (AUTO) 7.1 K/uL (4.8-10.8)
[2022-10-30] MEDS: ASPIRIN 81 MG EC TAB PO SCH (08:20)
[2022-10-30] MEDS: Vitamin B Complex/Vit C/Folic Acid PO SCH (08:20)
[2022-10-30] MEDS: PANTOPRAZOLE 40 MG TAB DR PO SCH ×2 (08:20→20:15)
[2022-10-30] MEDS: ATORVASTATIN 20 MG TABLET PO SCH (08:20)
[2022-10-30] MEDS: LACTULOSE 20 GM/30 ML UDCUP PO SCH ×4 (08:20→20:16)
[2022-10-30] MEDS: METOLAZONE 2.5 MG TABLET PO SCH (08:20)
[2022-10-30] MEDS: POLYETHYLENE GLYCOL 3350 17 GM POWD.PACK PO SCH (08:21)
[2022-10-30] MEDS: MIDODRINE HCL 5 MG TABLET PO SCH ×3 (08:21→20:23)
[2022-10-30] MEDS ORDERED: METOPROLOL TARTRATE 25 MG TAB ONE ×2 (17:27→20:12)
[2022-10-30] MEDS: METOPROLOL TARTRATE 25 MG TAB PO SCH ×2 (17:30→20:16)
[2022-10-30] MEDS ORDERED: OCTREOTIDE ACETATE 100 MCG/ML AMP ONE (17:31)
[2022-10-30] MEDS ORDERED: CEFEPIME HCL 2 GM VIAL ONE (20:12)
[2022-10-30] MEDS ORDERED: LACTULOSE 20 GM/30 ML UDCUP ONE (20:13)
[2022-10-30] MEDS ORDERED: PANTOPRAZOLE 40 MG TAB DR ONE ×2 (20:13→20:14)
[2022-10-30] MEDS: CEFEPIME HCL 2 GM VIAL IVP SCH (20:20)
[2022-10-30] MEDS ORDERED: ACETAMINOPHEN 650 MG SUPPOSITORY RC ONE (23:47)
[2022-10-31] VITALS (64 sets, daily range): BP systolic 90–136; BP diastolic 34–63
[2022-10-31] MEDS ORDERED: OCTREOTIDE ACETATE 100 MCG/ML AMP ONE (01:15)
[2022-10-31] MEDS: OCTREOTIDE ACETATE 100 MCG/ML AMP SQ SCH ×2 (01:20→09:23)
[2022-10-31 03:32] LABS: ABG BASE EXCESS 1.7 mmol/L (-2.0-3.0); ABG HCO3 29.5 mmol/L (21.0-28.0); ABG OXYGEN SATURATION 89.6 % (95.0-99.0); ABG PCO2 60 mmHg (35-48)
[2022-10-31] MEDS ORDERED: FUROSEMIDE 40MG VIAL ONE (03:50)
[2022-10-31] MEDS: FUROSEMIDE 40MG VIAL IV SCH (03:51)
[2022-10-31 04:21] LABS: HEMATOCRIT 28.9 % (42-54); MEAN CORPUSCULAR HEMOGLOBIN 26.6 pg (27.0-33.0); MEAN CORPUSCULAR HGB CONC 29.4 g/dL (32.0-36.0); MEAN CORPUSCULAR VOLUME 90.6 fL (79-99); NUCLEATED RED BLOOD CELLS 0.8 % (0.0-0.19); RED BLOOD CELL COUNT(AUTO) 3.19 MIL/uL (4.50-6.20); RED CELL DISTRIBUTION WIDTH 22.3 % (11.0-15.5); WHITE BLOOD COUNT (AUTO) 7.1 K/uL (4.8-10.8)
[2022-10-31 04:56] LABS: ALBUMIN 2.6 g/dL (3.5-5.0); MAGNESIUM 2.3 mg/dL (1.80-2.40); POTASSIUM 3.8 mmol/L (3.5-5.1); TOTAL PROTEIN, SERUM 5.5 g/dL (6.0-8.3)
[2022-10-31] MEDS: INSULIN HUMULIN R 100 UNIT/ML 3ML SQ SCH ×4 (06:56→20:07)
[2022-10-31] MEDS: ATORVASTATIN 20 MG TABLET PO SCH (08:17)
[2022-10-31] MEDS: ASPIRIN 81 MG EC TAB PO SCH (08:17)
[2022-10-31] MEDS: MIDODRINE HCL 5 MG TABLET PO SCH ×4 (08:17→20:08)
[2022-10-31] MEDS: PANTOPRAZOLE 40 MG TAB DR PO SCH ×2 (08:17→20:08)
[2022-10-31] MEDS: METOPROLOL TARTRATE 25 MG TAB PO SCH (08:18)
[2022-10-31] MEDS: Vitamin B Complex/Vit C/Folic Acid PO SCH (08:18)
[2022-10-31] MEDS: POLYETHYLENE GLYCOL 3350 17 GM POWD.PACK PO SCH (08:18)
[2022-10-31] MEDS: LACTULOSE 20 GM/30 ML UDCUP PO SCH ×3 (08:23→20:08)
[2022-10-31] MEDS: METRONIDAZOLE 500 MG TABLET PO SCH ×2 (10:54→18:11)
[2022-10-31] MEDS: RIFAXIMIN 550 MG TABLET PO SCH (20:07)
[2022-10-31] MEDS: CEFEPIME HCL 2 GM VIAL IVP SCH (20:07)
[2022-10-31] MEDS ORDERED: HEPARIN 5,000 UNIT VIAL IJ SCH (20:30)
[2022-10-31 20:48] LABS: ABG BASE EXCESS 3.2 mmol/L (-2.0-3.0); ABG HCO3 29.9 mmol/L (21.0-28.0); ABG OXYGEN SATURATION 78.6 % (95.0-99.0); ABG PCO2 54 mmHg (35-48)
[2022-10-31 20:55] LABS: ABG BASE EXCESS 2.8 mmol/L (-2.0-3.0); ABG HCO3 30.9 mmol/L (21.0-28.0); ABG OXYGEN SATURATION 81.3 % (95.0-99.0); ABG PCO2 63 mmHg (35-48)
[2022-11-01] VITALS (91 sets, daily range): BP systolic 98–134; BP diastolic 28–83
[2022-11-01] MEDS: METRONIDAZOLE 500 MG TABLET PO SCH ×3 (01:29→18:07)
[2022-11-01 03:41] LABS: BASOPHILS % (AUTO) 0.1 % (0.0-5.0); EOSINOPHILS % (AUTO) 0.2 % (0.0-8.0); HEMATOCRIT 26.2 % (42-54); LYMPHOCYTES % (AUTO) 4.8 % (21.0-51.0); MEAN CORPUSCULAR HEMOGLOBIN 26.7 pg (27.0-33.0); MEAN CORPUSCULAR VOLUME 91.9 fL (79-99); MONOCYTES % (AUTO) 14.1 % (3.0-13.0); NEUTROPHILS % (AUTO) 80.5 % (40.0-77.0); NUCLEATED RED BLOOD CELLS 0.8 % (0.0-0.19); PLATELET COUNT (AUTO) 18 K/uL (130-400); RED BLOOD CELL COUNT(AUTO) 2.85 MIL/uL (4.50-6.20); RED CELL DISTRIBUTION WIDTH 24.2 % (11.0-15.5); WHITE BLOOD COUNT (AUTO) 8.9 K/uL (4.8-10.8)
[2022-11-01 04:01] LABS: ALBUMIN 2.4 g/dL (3.5-5.0); CREATININE 4.3 mg/dL (0.5-1.5); MAGNESIUM 2.1 mg/dL (1.80-2.40); PHOSPHORUS 5.1 mg/dL (2.5-4.9); POTASSIUM 3.5 mmol/L (3.5-5.1); TOTAL PROTEIN, SERUM 5.3 g/dL (6.0-8.3)
[2022-11-01] MEDS: POTASSIUM CHLORIDE 10% ELIXIR 20 MEQ/15 ML UDCUP PO PRN (05:53)
[2022-11-01] MEDS: INSULIN HUMULIN R 100 UNIT/ML 3ML SQ SCH ×4 (07:30→20:10)
[2022-11-01 07:41] LABS: ABG BASE EXCESS 3.2 mmol/L (-2.0-3.0); ABG HCO3 30.9 mmol/L (21.0-28.0); ABG OXYGEN SATURATION 96.4 % (95.0-99.0); ABG PCO2 60 mmHg (35-48)
[2022-11-01] MEDS ORDERED: GLUCAGON 1MG KIT 1 MG ML IM PRN (08:00)
[2022-11-01] MEDS: MIDODRINE HCL 5 MG TABLET PO SCH ×3 (08:10→20:10)
[2022-11-01] MEDS: Vitamin B Complex/Vit C/Folic Acid PO SCH (08:10)
[2022-11-01] MEDS: LACTULOSE 20 GM/30 ML UDCUP PO SCH ×3 (08:10→20:09)
[2022-11-01] MEDS: ASPIRIN 81 MG EC TAB PO SCH (08:10)
[2022-11-01] MEDS: RIFAXIMIN 550 MG TABLET PO SCH ×2 (08:10→20:10)
[2022-11-01] MEDS: PANTOPRAZOLE 40 MG TAB DR PO SCH ×2 (08:10→20:10)
[2022-11-01] MEDS: POLYETHYLENE GLYCOL 3350 17 GM POWD.PACK PO SCH (08:11)
[2022-11-01] MEDS: CEFEPIME HCL 2 GM VIAL IVP SCH (20:09)
[2022-11-01] MEDS ORDERED: EPOETIN ALFA-EPBX (NON-ESRD) 10,000 UNIT/ML VIAL SQ SCH (21:00)
[2022-11-02] VITALS (107 sets, daily range): BP systolic 99–147; BP diastolic 30–83
[2022-11-02] MEDS: METRONIDAZOLE 500 MG TABLET PO SCH (02:31)
[2022-11-02 04:02] LABS: BASOPHILS % (AUTO) 0.1 % (0.0-5.0); EOSINOPHILS % (AUTO) 0.4 % (0.0-8.0); HEMATOCRIT 25.1 % (42-54); LYMPHOCYTES % (AUTO) 4.1 % (21.0-51.0); MEAN CORPUSCULAR HEMOGLOBIN 26.9 pg (27.0-33.0); MEAN CORPUSCULAR HGB CONC 29.5 g/dL (32.0-36.0); MEAN CORPUSCULAR VOLUME 91.3 fL (79-99); MONOCYTES % (AUTO) 13.6 % (3.0-13.0); NEUTROPHILS % (AUTO) 81.2 % (40.0-77.0); NUCLEATED RED BLOOD CELLS 0.8 % (0.0-0.19); PLATELET COUNT (AUTO) 17 K/uL (130-400); RED BLOOD CELL COUNT(AUTO) 2.75 MIL/uL (4.50-6.20); RED CELL DISTRIBUTION WIDTH 25.5 % (11.0-15.5); WHITE BLOOD COUNT (AUTO) 10.1 K/uL (4.8-10.8)
[2022-11-02 04:17] LABS: ALBUMIN 2.3 g/dL (3.5-5.0); CREATININE 4.4 mg/dL (0.5-1.5); PHOSPHORUS 4.9 mg/dL (2.5-4.9); POTASSIUM 3.6 mmol/L (3.5-5.1); TOTAL PROTEIN, SERUM 5.2 g/dL (6.0-8.3)
[2022-11-02] MEDS: DEXTROSE 50%-WATER 50 ML DISP.SYRIN IV PRN (07:08)
[2022-11-02] MEDS: INSULIN HUMULIN R 100 UNIT/ML 3ML SQ SCH ×4 (07:30→20:28)
[2022-11-02] MEDS: ASPIRIN 81 MG EC TAB PO SCH (07:39)
[2022-11-02] MEDS: POLYETHYLENE GLYCOL 3350 17 GM POWD.PACK PO SCH (07:40)
[2022-11-02] MEDS: PANTOPRAZOLE 40 MG TAB DR PO SCH ×2 (08:03→20:28)
[2022-11-02] MEDS: MIDODRINE HCL 5 MG TABLET PO SCH ×3 (08:03→20:28)
[2022-11-02] MEDS: RIFAXIMIN 550 MG TABLET PO SCH ×2 (08:03→20:28)
[2022-11-02] MEDS: Vitamin B Complex/Vit C/Folic Acid PO SCH (08:04)
[2022-11-02] MEDS: LACTULOSE 20 GM/30 ML UDCUP PO SCH ×3 (08:07→20:28)
[2022-11-02] MEDS: METOCLOPRAMIDE 10 MG/2 ML VIAL IVP SCH ×3 (10:17→20:28)
[2022-11-02] MEDS: METRONIDAZOLE 500MG/100ML BAG 100 ML IVPB SCH ×2 (14:27→20:53)
[2022-11-02] MEDS ORDERED: NOREPINEPHRIN 4MG/NS 250ML 250 ML IV SCH (15:30)
[2022-11-02] MEDS ORDERED: NOREPINEPHRIN 4MG/NS 250ML 250 ML IV ONE (15:38)
[2022-11-02] MEDS: CEFEPIME HCL 2 GM VIAL IVP SCH (20:27)
[2022-11-03] VITALS (58 sets, daily range): BP systolic 92–128; BP diastolic 31–55
[2022-11-03 04:29] LABS: ALBUMIN 2.2 g/dL (3.5-5.0); CREATININE 3.9 mg/dL (0.5-1.5); POTASSIUM 3.5 mmol/L (3.5-5.1); TOTAL PROTEIN, SERUM 5.3 g/dL (6.0-8.3)
[2022-11-03 04:37] LABS: BASOPHILS % (AUTO) 0.1 % (0.0-5.0); EOSINOPHILS % (AUTO) 0.4 % (0.0-8.0); HEMATOCRIT 23.7 % (42-54); LYMPHOCYTES % (AUTO) 6.4 % (21.0-51.0); MEAN CORPUSCULAR HEMOGLOBIN 27.8 pg (27.0-33.0); MEAN CORPUSCULAR HGB CONC 29.5 g/dL (32.0-36.0); MONOCYTES % (AUTO) 15.8 % (3.0-13.0); NEUTROPHILS % (AUTO) 76.7 % (40.0-77.0); NUCLEATED RED BLOOD CELLS 0.6 % (0.0-0.19); PLATELET COUNT (AUTO) 21 K/uL (130-400); RED BLOOD CELL COUNT(AUTO) 2.52 MIL/uL (4.50-6.20); RED CELL DISTRIBUTION WIDTH 26.6 % (11.0-15.5); WHITE BLOOD COUNT (AUTO) 8.2 K/uL (4.8-10.8)
[2022-11-03] MEDS: METRONIDAZOLE 500MG/100ML BAG 100 ML IVPB SCH ×3 (06:05→22:21)
[2022-11-03] MEDS: INSULIN HUMULIN R 100 UNIT/ML 3ML SQ SCH ×4 (06:05→20:49)
[2022-11-03] MEDS: METOCLOPRAMIDE 10 MG/2 ML VIAL IVP SCH ×4 (06:05→20:48)
[2022-11-03] MEDS ORDERED: EPOETIN ALFA-EPBX (NON-ESRD) 10,000 UNIT/ML VIAL SQ SCH (09:00)
[2022-11-03] MEDS: PANTOPRAZOLE 40 MG TAB DR PO SCH ×2 (09:49→20:49)
[2022-11-03] MEDS: LACTULOSE 20 GM/30 ML UDCUP PO SCH ×3 (09:49→20:48)
[2022-11-03] MEDS: RIFAXIMIN 550 MG TABLET PO SCH ×2 (09:49→20:49)
[2022-11-03] MEDS: Vitamin B Complex/Vit C/Folic Acid PO SCH (09:50)
[2022-11-03] MEDS: MIDODRINE HCL 5 MG TABLET PO SCH ×3 (09:50→20:49)
[2022-11-03] MEDS ORDERED: MIDODRINE HCL 5 MG TABLET PO PRN (11:30)
[2022-11-03] MEDS: CEFEPIME HCL 2 GM VIAL IVP SCH (20:48)
[2022-11-04] VITALS (20 sets, daily range): BP systolic 103–125; BP diastolic 37–50
[2022-11-04 03:49] LABS: BASOPHILS % (AUTO) 0.1 % (0.0-5.0); EOSINOPHILS % (AUTO) 0.4 % (0.0-8.0); HEMATOCRIT 22.5 % (42-54); LYMPHOCYTES % (AUTO) 6.7 % (21.0-51.0); MEAN CORPUSCULAR HEMOGLOBIN 27.2 pg (27.0-33.0); MEAN CORPUSCULAR HGB CONC 28.4 g/dL (32.0-36.0); MEAN CORPUSCULAR VOLUME 95.7 fL (79-99); MONOCYTES % (AUTO) 17.4 % (3.0-13.0); NUCLEATED RED BLOOD CELLS 1.2 % (0.0-0.19); PLATELET COUNT (AUTO) 40 K/uL (130-400); RED BLOOD CELL COUNT(AUTO) 2.35 MIL/uL (4.50-6.20); RED CELL DISTRIBUTION WIDTH 28.7 % (11.0-15.5); WHITE BLOOD COUNT (AUTO) 7.7 K/uL (4.8-10.8)
[2022-11-04 04:15] LABS: ALBUMIN 2.1 g/dL (3.5-5.0); CREATININE 4.8 mg/dL (0.5-1.5); PHOSPHORUS 4.6 mg/dL (2.5-4.9); POTASSIUM 3.5 mmol/L (3.5-5.1); TOTAL PROTEIN, SERUM 5.1 g/dL (6.0-8.3)
[2022-11-04 04:45] LABS: PLATELET MORPHOLOGY COMMENT DECREASED
[2022-11-04] MEDS: INSULIN HUMULIN R 100 UNIT/ML 3ML SQ SCH ×4 (07:30→21:00)
[2022-11-04] MEDS: Vitamin B Complex/Vit C/Folic Acid PO SCH (08:22)
[2022-11-04] MEDS: RIFAXIMIN 550 MG TABLET PO SCH ×2 (08:22→20:57)
[2022-11-04] MEDS: PANTOPRAZOLE 40 MG TAB DR PO SCH ×2 (08:22→20:58)
[2022-11-04] MEDS: LACTULOSE 20 GM/30 ML UDCUP PO SCH ×3 (08:23→20:59)
[2022-11-04] MEDS: METOCLOPRAMIDE 10 MG/2 ML VIAL IVP SCH ×4 (08:23→20:58)
[2022-11-04] MEDS: MIDODRINE HCL 5 MG TABLET PO SCH ×3 (08:30→20:58)
[2022-11-04] MEDS: METRONIDAZOLE 500MG/100ML BAG 100 ML IVPB SCH ×3 (08:39→23:24)
[2022-11-04] MEDS: ACETAMINOPHEN 325 MG TAB PO PRN (08:48)
[2022-11-04 18:37] LABS: HEMATOCRIT 26.7 % (42-54)
[2022-11-04] MEDS: CEFEPIME HCL 2 GM VIAL IVP SCH (20:59)
[2022-11-05] VITALS: BP 112/46
[2022-11-05 04:00] VITALS: BP 112/52
[2022-11-05] MEDS: METRONIDAZOLE 500MG/100ML BAG 100 ML IVPB SCH ×2 (06:41→14:01)
[2022-11-05] MEDS: METOCLOPRAMIDE 10 MG/2 ML VIAL IVP SCH ×4 (07:13→21:00)
[2022-11-05] MEDS: INSULIN HUMULIN R 100 UNIT/ML 3ML SQ SCH ×4 (07:13→21:00)
[2022-11-05 07:39] VITALS: BP 122/49
[2022-11-05] MEDS: LACTULOSE 20 GM/30 ML UDCUP PO SCH ×3 (08:58→21:04)
[2022-11-05] MEDS: RIFAXIMIN 550 MG TABLET PO SCH ×2 (08:58→21:05)
[2022-11-05] MEDS: Vitamin B Complex/Vit C/Folic Acid PO SCH (08:58)
[2022-11-05] MEDS: PANTOPRAZOLE 40 MG TAB DR PO SCH ×2 (08:58→21:06)
[2022-11-05] MEDS: MIDODRINE HCL 5 MG TABLET PO SCH ×3 (08:59→21:05)
[2022-11-05 11:51] VITALS: BP 121/44
[2022-11-05 16:07] VITALS: BP 115/45
[2022-11-05 18:51] VITALS: BP 110/45
[2022-11-05] MEDS: ACETAMINOPHEN 325 MG TAB PO PRN (21:05)
[2022-11-05] MEDS: CEFEPIME HCL 2 GM VIAL IVP SCH (21:06)
[2022-11-06] VITALS (7 sets, daily range): BP systolic 108–132; BP diastolic 45–53
[2022-11-06] MEDS: METRONIDAZOLE 500MG/100ML BAG 100 ML IVPB SCH ×4 (01:08→22:00)
[2022-11-06 04:45] LABS: BASOPHILS % (AUTO) 0.2 % (0.0-5.0); EOSINOPHILS % (AUTO) 2.7 % (0.0-8.0); HEMATOCRIT 25.9 % (42-54); LYMPHOCYTES % (AUTO) 5.7 % (21.0-51.0); MEAN CORPUSCULAR HEMOGLOBIN 28.7 pg (27.0-33.0); MEAN CORPUSCULAR HGB CONC 30.1 g/dL (32.0-36.0); MEAN CORPUSCULAR VOLUME 95.2 fL (79-99); MONOCYTES % (AUTO) 18.3 % (3.0-13.0); NUCLEATED RED BLOOD CELLS 0.6 % (0.0-0.19); PLATELET COUNT (AUTO) 67 K/uL (130-400); RED BLOOD CELL COUNT(AUTO) 2.72 MIL/uL (4.50-6.20); RED CELL DISTRIBUTION WIDTH 30.5 % (11.0-15.5); WHITE BLOOD COUNT (AUTO) 8.7 K/uL (4.8-10.8)
[2022-11-06 04:54] LABS: CREATININE 4.9 mg/dL (0.5-1.5); PHOSPHORUS 4.5 mg/dL (2.5-4.9); POTASSIUM 3.1 mmol/L (3.5-5.1)
[2022-11-06 05:00] LABS: INR 1.55 (0.85-1.15); PROTHROMBIN TIME 16.5 SEC (9.6-11.6)
[2022-11-06 05:01] LABS: PARTIAL THROMBOPLASTIN TIME 49.6 SEC (26.3-35.5)
[2022-11-06] MEDS: KCL 20 MEQ ERTAB PO PRN ×2 (06:38→10:12)
[2022-11-06] MEDS: METOCLOPRAMIDE 10 MG/2 ML VIAL IVP SCH ×4 (06:59→20:50)
[2022-11-06] MEDS: INSULIN HUMULIN R 100 UNIT/ML 3ML SQ SCH ×4 (06:59→21:00)
[2022-11-06] MEDS: MIDODRINE HCL 5 MG TABLET PO SCH ×3 (09:00→20:51)
[2022-11-06] MEDS: LACTULOSE 20 GM/30 ML UDCUP PO SCH ×3 (09:57→20:50)
[2022-11-06] MEDS: PANTOPRAZOLE 40 MG TAB DR PO SCH ×2 (10:13→20:51)
[2022-11-06] MEDS: Vitamin B Complex/Vit C/Folic Acid PO SCH (10:15)
[2022-11-06] MEDS: RIFAXIMIN 550 MG TABLET PO SCH ×2 (10:15→20:50)
[2022-11-06] MEDS: ACETAMINOPHEN 325 MG TAB PO PRN (18:28)
[2022-11-06] MEDS: CEFEPIME HCL 2 GM VIAL IVP SCH (20:49)
[2022-11-07] VITALS (20 sets, daily range): BP systolic 114–130; BP diastolic 44–65
[2022-11-07 03:58] LABS: HEMATOCRIT 24.9 % (42-54); MEAN CORPUSCULAR HEMOGLOBIN 29.1 pg (27.0-33.0); MEAN CORPUSCULAR HGB CONC 29.3 g/dL (32.0-36.0); MEAN CORPUSCULAR VOLUME 99.2 fL (79-99); NUCLEATED RED BLOOD CELLS 0.7 % (0.0-0.19); RED BLOOD CELL COUNT(AUTO) 2.51 MIL/uL (4.50-6.20); RED CELL DISTRIBUTION WIDTH 32.5 % (11.0-15.5); WHITE BLOOD COUNT (AUTO) 7.3 K/uL (4.8-10.8)
[2022-11-07 04:09] LABS: CREATININE 5.4 mg/dL (0.5-1.5); POTASSIUM 3.4 mmol/L (3.5-5.1)
[2022-11-07] MEDS: METRONIDAZOLE 500MG/100ML BAG 100 ML IVPB SCH ×2 (06:27→14:48)
[2022-11-07] MEDS: METOCLOPRAMIDE 10 MG/2 ML VIAL IVP SCH ×4 (06:28→22:21)
[2022-11-07] MEDS: INSULIN HUMULIN R 100 UNIT/ML 3ML SQ SCH ×4 (07:30→21:00)
[2022-11-07] MEDS: Vitamin B Complex/Vit C/Folic Acid PO SCH (08:26)
[2022-11-07] MEDS: RIFAXIMIN 550 MG TABLET PO SCH ×2 (08:26→22:18)
[2022-11-07] MEDS: PANTOPRAZOLE 40 MG TAB DR PO SCH ×2 (08:26→22:21)
[2022-11-07] MEDS: MIDODRINE HCL 5 MG TABLET PO SCH ×3 (08:28→22:18)
[2022-11-07] MEDS: LACTULOSE 20 GM/30 ML UDCUP PO SCH ×3 (10:48→22:19)
[2022-11-07] MEDS: CEFEPIME HCL 2 GM VIAL IVP SCH (22:22)
[2022-11-08] MEDS: METRONIDAZOLE 500MG/100ML BAG 100 ML IVPB SCH ×4 (00:06→19:52)
[2022-11-08 00:15] VITALS: BP 114/50
[2022-11-08 03:15] VITALS: BP 109/51
[2022-11-08 03:34] LABS: BASOPHILS % (AUTO) 0.1 % (0.0-5.0); EOSINOPHILS % (AUTO) 0.6 % (0.0-8.0); LYMPHOCYTES % (AUTO) 6.4 % (21.0-51.0); MEAN CORPUSCULAR HEMOGLOBIN 29.6 pg (27.0-33.0); MEAN CORPUSCULAR HGB CONC 29.6 g/dL (32.0-36.0); MONOCYTES % (AUTO) 15.3 % (3.0-13.0); NEUTROPHILS % (AUTO) 77.2 % (40.0-77.0); NUCLEATED RED BLOOD CELLS 0.6 % (0.0-0.19)
[2022-11-08 03:47] LABS: CREATININE 4.6 mg/dL (0.5-1.5); POTASSIUM 3.4 mmol/L (3.5-5.1)
[2022-11-08 03:51] LABS: PLATELET COUNT (AUTO) 63 K/uL (130-400)
[2022-11-08] MEDS: POTASSIUM CHLORIDE 10% ELIXIR 20 MEQ/15 ML UDCUP PO PRN ×2 (05:46→08:01)
[2022-11-08] MEDS: INSULIN HUMULIN R 100 UNIT/ML 3ML SQ SCH ×4 (05:57→20:15)
[2022-11-08 07:15] VITALS: BP 120/46
[2022-11-08] MEDS: MIDODRINE HCL 5 MG TABLET PO SCH ×3 (08:02→19:53)
[2022-11-08] MEDS: LACTULOSE 20 GM/30 ML UDCUP PO SCH ×3 (08:02→19:53)
[2022-11-08] MEDS: RIFAXIMIN 550 MG TABLET PO SCH ×2 (08:02→19:53)
[2022-11-08] MEDS: PANTOPRAZOLE 40 MG TAB DR PO SCH ×2 (08:03→19:53)
[2022-11-08] MEDS: METOCLOPRAMIDE 10 MG/2 ML VIAL IVP SCH ×4 (08:03→19:52)
[2022-11-08] MEDS: Vitamin B Complex/Vit C/Folic Acid PO SCH (08:03)
[2022-11-08 11:06] VITALS: BP 122/55
[2022-11-08 15:30] VITALS: BP 124/44
[2022-11-08 17:48] LABS: HEMATOCRIT 25.8 % (42-54)
[2022-11-08 19:00] VITALS: BP 125/46
[2022-11-08] MEDS: CEFEPIME HCL 2 GM VIAL IVP SCH (19:52)
[2022-11-09] VITALS (28 sets, daily range): BP systolic 86–152; BP diastolic 42–66
[2022-11-09] MEDS: METOCLOPRAMIDE 10 MG/2 ML VIAL IVP SCH ×4 (04:34→22:24)
[2022-11-09] MEDS: METRONIDAZOLE 500MG/100ML BAG 100 ML IVPB SCH ×3 (04:34→22:24)
[2022-11-09 04:57] LABS: BASOPHILS % (AUTO) 0.2 % (0.0-5.0); EOSINOPHILS % (AUTO) 0.5 % (0.0-8.0); HEMATOCRIT 24.8 % (42-54); MEAN CORPUSCULAR HGB CONC 29.8 g/dL (32.0-36.0); MEAN CORPUSCULAR VOLUME 100.4 fL (79-99); MONOCYTES % (AUTO) 14.8 % (3.0-13.0); NEUTROPHILS % (AUTO) 78.9 % (40.0-77.0); NUCLEATED RED BLOOD CELLS 0.2 % (0.0-0.19); PLATELET COUNT (AUTO) 85 K/uL (130-400); RED BLOOD CELL COUNT(AUTO) 2.47 MIL/uL (4.50-6.20); WHITE BLOOD COUNT (AUTO) 9.4 K/uL (4.8-10.8)
[2022-11-09 05:07] LABS: INR 1.49 (0.85-1.15); PROTHROMBIN TIME 15.9 SEC (9.6-11.6)
[2022-11-09 05:08] LABS: PARTIAL THROMBOPLASTIN TIME 46.1 SEC (26.3-35.5)
[2022-11-09] MEDS: INSULIN HUMULIN R 100 UNIT/ML 3ML SQ SCH ×4 (05:31→19:53)
[2022-11-09 05:32] LABS: CREATININE 5.4 mg/dL (0.5-1.5); PHOSPHORUS 4.3 mg/dL (2.5-4.9); POTASSIUM 3.8 mmol/L (3.5-5.1)
[2022-11-09] MEDS: LACTULOSE 20 GM/30 ML UDCUP PO SCH ×3 (07:46→21:00)
[2022-11-09] MEDS: PANTOPRAZOLE 40 MG TAB DR PO SCH ×2 (07:47→21:00)
[2022-11-09] MEDS: Vitamin B Complex/Vit C/Folic Acid PO SCH (07:47)
[2022-11-09] MEDS: RIFAXIMIN 550 MG TABLET PO SCH ×2 (07:47→21:00)
[2022-11-09] MEDS: MIDODRINE HCL 5 MG TABLET PO SCH ×3 (09:00→22:24)
[2022-11-09] MEDS ORDERED: LIDOCAINE HCL 400MG/20ML VIAL ONE ×2 (13:09→13:43)
[2022-11-09] MEDS ORDERED: HEPARIN 1,000 UNIT VIAL ONE (13:09)
[2022-11-09] MEDS ORDERED: NALOXONE HCL 0.4 MG/1 ML ML ONE (13:32)
[2022-11-09] MEDS ORDERED: FENTANYL CITRATE PF 50 MCG/1 ML 2ML VIAL ONE (13:40)
[2022-11-09 15:08] LABS: ABG BASE EXCESS -2.5 mmol/L (-2.0-3.0); ABG OXYGEN SATURATION 98.3 % (95.0-99.0); ABG PCO2 68 mmHg (35-48)
[2022-11-09] MEDS ORDERED: NALOXONE HCL 0.4 MG/1 ML ML IVP SCH (15:30)
[2022-11-09 16:54] LABS: HEMATOCRIT 25.1 % (42-54)
[2022-11-09 17:11] LABS: INR 1.44 (0.85-1.15); PROTHROMBIN TIME 15.4 SEC (9.6-11.6)
[2022-11-09 17:13] LABS: PARTIAL THROMBOPLASTIN TIME 45.1 SEC (26.3-35.5)
[2022-11-09] MEDS ORDERED: ALBUMIN (HUMAN) 25% 100 ML IV PRN (19:30)
[2022-11-09] MEDS: CEFEPIME HCL 2 GM VIAL IVP SCH (22:31)
[2022-11-09 23:02] LABS: ABG BASE EXCESS 2.6 mmol/L (-2.0-3.0); ABG HCO3 29.7 mmol/L (21.0-28.0); ABG OXYGEN SATURATION 99.4 % (95.0-99.0); ABG PCO2 63 mmHg (35-48)
[2022-11-09 23:39] LABS: HEMATOCRIT 21.3 % (42-54)
[2022-11-10] VITALS (24 sets, daily range): BP systolic 106–157; BP diastolic 39–57
[2022-11-10 00:48] LABS: INR 1.5 (0.85-1.15)
[2022-11-10 00:49] LABS: PARTIAL THROMBOPLASTIN TIME 52.5 SEC (26.3-35.5)
[2022-11-10] MEDS: DEXTROSE 50%-WATER 50 ML DISP.SYRIN IV PRN ×3 (05:29→22:05)
[2022-11-10] MEDS: METRONIDAZOLE 500MG/100ML BAG 100 ML IVPB SCH ×3 (05:30→22:17)
[2022-11-10 06:50] LABS: BASOPHILS % (AUTO) 0.2 % (0.0-5.0); EOSINOPHILS % (AUTO) 0.8 % (0.0-8.0); HEMATOCRIT 23.2 % (42-54); LYMPHOCYTES % (AUTO) 5.6 % (21.0-51.0); MEAN CORPUSCULAR HEMOGLOBIN 30.2 pg (27.0-33.0); MEAN CORPUSCULAR HGB CONC 29.3 g/dL (32.0-36.0); MEAN CORPUSCULAR VOLUME 103.1 fL (79-99); MONOCYTES % (AUTO) 14.1 % (3.0-13.0); NEUTROPHILS % (AUTO) 78.6 % (40.0-77.0); NUCLEATED RED BLOOD CELLS 0.3 % (0.0-0.19); PLATELET COUNT (AUTO) 49 K/uL (130-400); RED BLOOD CELL COUNT(AUTO) 2.25 MIL/uL (4.50-6.20); RED CELL DISTRIBUTION WIDTH 31.7 % (11.0-15.5)
[2022-11-10 07:00] LABS: ALBUMIN 1.9 g/dL (3.5-5.0); CREATININE 4.4 mg/dL (0.5-1.5); PHOSPHORUS 4.6 mg/dL (2.5-4.9); POTASSIUM 4.3 mmol/L (3.5-5.1); TOTAL PROTEIN, SERUM 4.5 g/dL (6.0-8.3)
[2022-11-10] MEDS: INSULIN HUMULIN R 100 UNIT/ML 3ML SQ SCH ×4 (07:11→21:00)
[2022-11-10] MEDS ORDERED: TRANEXAMIC ACID 1000MG/10ML IV ONE (08:00)
[2022-11-10] MEDS ORDERED: TRANEXAMIC ACID 1,000 MG in 0.9%NACL 100ML 100 ML IV SCH (08:00)
[2022-11-10] MEDS ORDERED: PHYTONADIONE 10 MG in 0.9%NACL 50ML 50 ML IVPB SCH (08:00)
[2022-11-10] MEDS: METOCLOPRAMIDE 10 MG/2 ML VIAL IVP SCH ×4 (08:40→22:16)
[2022-11-10] MEDS: RIFAXIMIN 550 MG TABLET PO SCH ×2 (09:00→21:00)
[2022-11-10] MEDS: PANTOPRAZOLE 40 MG TAB DR PO SCH ×2 (09:00→21:00)
[2022-11-10] MEDS: Vitamin B Complex/Vit C/Folic Acid PO SCH (09:00)
[2022-11-10] MEDS: LACTULOSE 20 GM/30 ML UDCUP PO SCH ×3 (09:00→21:00)
[2022-11-10] MEDS: MIDODRINE HCL 5 MG TABLET PO SCH ×3 (09:00→21:00)
[2022-11-10 09:14] LABS: ABG BASE EXCESS -0.9 mmol/L (-2.0-3.0); ABG HCO3 26.7 mmol/L (21.0-28.0); ABG OXYGEN SATURATION 96.4 % (95.0-99.0); ABG PCO2 56 mmHg (35-48)
[2022-11-10] MEDS ORDERED: LIDOCAINE HCL 1% MDV 50ML VIAL ONE (10:21)
[2022-11-10] MEDS ORDERED: ASPI-1197 PO (10:52)
[2022-11-10] MEDS ORDERED: FOLI0.8T3 PO (10:52)
[2022-11-10] MEDS ORDERED: CALC-1125 PO (10:52)
[2022-11-10] MEDS ORDERED: METH2.5T6 PO (10:52)
[2022-11-10] MEDS ORDERED: ATOR10 PO (10:52)
[2022-11-10] MEDS ORDERED: LOSA25TA41 PO (10:52)
[2022-11-10] MEDS ORDERED: CLOP75TA32 PO (10:52)
[2022-11-10] MEDS ORDERED: [UNRECOGNIZED DRUG - OTHER] IJ SCH (14:00)
[2022-11-10] MEDS ORDERED: DESMOPRESSIN IJ SCH (14:00)
[2022-11-10] MEDS ORDERED: PHARMACY COMMUNICATION MISC SCH (14:00)
[2022-11-10 14:23] LABS: HEMATOCRIT 37.3 % (42-54)
[2022-11-10 22:29] LABS: HEMATOCRIT 23.9 % (42-54)
[2022-11-10] MEDS: CEFEPIME HCL 2 GM VIAL IVP SCH (23:48)
[2022-11-11] VITALS (20 sets, daily range): BP systolic 102–149; BP diastolic 41–75
[2022-11-11 04:39] LABS: BASOPHILS % (AUTO) 0.4 % (0.0-5.0); EOSINOPHILS % (AUTO) 0.3 % (0.0-8.0); HEMATOCRIT 21.2 % (42-54); LYMPHOCYTES % (AUTO) 4.4 % (21.0-51.0); MEAN CORPUSCULAR HEMOGLOBIN 31.5 pg (27.0-33.0); MEAN CORPUSCULAR HGB CONC 32.1 g/dL (32.0-36.0); MEAN CORPUSCULAR VOLUME 98.1 fL (79-99); MONOCYTES % (AUTO) 12.7 % (3.0-13.0); NEUTROPHILS % (AUTO) 81.7 % (40.0-77.0); NUCLEATED RED BLOOD CELLS 0.2 % (0.0-0.19); PLATELET COUNT (AUTO) 54 K/uL (130-400); RED BLOOD CELL COUNT(AUTO) 2.16 MIL/uL (4.50-6.20); RED CELL DISTRIBUTION WIDTH 29.9 % (11.0-15.5); WHITE BLOOD COUNT (AUTO) 11.4 K/uL (4.8-10.8)
[2022-11-11 05:02] LABS: ALBUMIN 1.9 g/dL (3.5-5.0); CREATININE 3.6 mg/dL (0.5-1.5); MAGNESIUM 1.8 mg/dL (1.80-2.40); PHOSPHORUS 4.2 mg/dL (2.5-4.9); POTASSIUM 4.1 mmol/L (3.5-5.1); TOTAL PROTEIN, SERUM 4.8 g/dL (6.0-8.3)
[2022-11-11] MEDS: METRONIDAZOLE 500MG/100ML BAG 100 ML IVPB SCH ×2 (06:38→18:26)
[2022-11-11] MEDS: INSULIN HUMULIN R 100 UNIT/ML 3ML SQ SCH ×4 (06:38→20:45)
[2022-11-11 09:18] LABS: ABG BASE EXCESS 0.8 mmol/L (-2.0-3.0); ABG HCO3 28.3 mmol/L (21.0-28.0); ABG OXYGEN SATURATION 97.8 % (95.0-99.0); ABG PCO2 57 mmHg (35-48)
[2022-11-11] MEDS: PANTOPRAZOLE 40 MG TAB DR PO SCH ×2 (10:14→21:16)
[2022-11-11] MEDS: MIDODRINE HCL 5 MG TABLET PO SCH ×3 (10:14→21:00)
[2022-11-11] MEDS: RIFAXIMIN 550 MG TABLET PO SCH ×2 (10:14→21:16)
[2022-11-11] MEDS: Vitamin B Complex/Vit C/Folic Acid PO SCH (10:14)
[2022-11-11] MEDS: LACTULOSE 20 GM/30 ML UDCUP PO SCH ×3 (10:14→21:00)
[2022-11-11] MEDS: METOCLOPRAMIDE 10 MG/2 ML VIAL IVP SCH ×4 (10:14→21:16)
[2022-11-11 14:02] LABS: HEMATOCRIT 25.5 % (42-54)
[2022-11-11] MEDS: DEXTROSE 50%-WATER 50 ML DISP.SYRIN IV PRN (18:26)
[2022-11-11] MEDS: CEFEPIME HCL 2 GM VIAL IVP SCH (21:16)
[2022-11-11 23:00] LABS: HEMATOCRIT 24.5 % (42-54)
[2022-11-12 00:18] VITALS: BP 134/48
[2022-11-12] MEDS: METRONIDAZOLE 500MG/100ML BAG 100 ML IVPB SCH ×4 (02:28→21:45)
[2022-11-12 03:18] VITALS: BP 133/53
[2022-11-12 04:18] LABS: BASOPHILS % (AUTO) 0.2 % (0.0-5.0); EOSINOPHILS % (AUTO) 0.2 % (0.0-8.0); HEMATOCRIT 25.1 % (42-54); LYMPHOCYTES % (AUTO) 4.7 % (21.0-51.0); MEAN CORPUSCULAR HEMOGLOBIN 30.9 pg (27.0-33.0); MEAN CORPUSCULAR HGB CONC 31.9 g/dL (32.0-36.0); MEAN CORPUSCULAR VOLUME 96.9 fL (79-99); MONOCYTES % (AUTO) 11.9 % (3.0-13.0); NEUTROPHILS % (AUTO) 82.5 % (40.0-77.0); NUCLEATED RED BLOOD CELLS 0.2 % (0.0-0.19); PLATELET COUNT (AUTO) 47 K/uL (130-400); RED BLOOD CELL COUNT(AUTO) 2.59 MIL/uL (4.50-6.20); RED CELL DISTRIBUTION WIDTH 29.8 % (11.0-15.5); WHITE BLOOD COUNT (AUTO) 9.7 K/uL (4.8-10.8)
[2022-11-12 04:39] LABS: CREATININE 3.2 mg/dL (0.5-1.5); POTASSIUM 3.5 mmol/L (3.5-5.1)
[2022-11-12] MEDS: METOCLOPRAMIDE 10 MG/2 ML VIAL IVP SCH ×4 (06:06→21:43)
[2022-11-12] MEDS: KCL 20 MEQ ERTAB PO PRN (06:06)
[2022-11-12] MEDS: DEXTROSE 50%-WATER 50 ML DISP.SYRIN IV PRN ×2 (06:20→18:42)
[2022-11-12] MEDS: INSULIN HUMULIN R 100 UNIT/ML 3ML SQ SCH ×4 (06:38→21:00)
[2022-11-12 08:00] VITALS: BP 109/42
[2022-11-12] MEDS ORDERED: Vitamin B Complex/Vit C/Folic Acid ONE (09:48)
[2022-11-12] MEDS: Vitamin B Complex/Vit C/Folic Acid PO SCH (09:51)
[2022-11-12] MEDS: RIFAXIMIN 550 MG TABLET PO SCH ×2 (09:51→21:44)
[2022-11-12] MEDS: LACTULOSE 20 GM/30 ML UDCUP PO SCH ×3 (09:51→21:43)
[2022-11-12] MEDS: MIDODRINE HCL 5 MG TABLET PO SCH ×3 (09:51→21:44)
[2022-11-12] MEDS: PANTOPRAZOLE 40 MG TAB DR PO SCH ×2 (09:52→21:44)
[2022-11-12 14:06] LABS: HEMATOCRIT 25.7 % (42-54)
[2022-11-12 16:00] VITALS: BP 140/52
[2022-11-12 19:12] VITALS: BP 129/52
[2022-11-12 22:52] LABS: HEMATOCRIT 25.7 % (42-54)
[2022-11-13] VITALS (7 sets, daily range): BP systolic 103–131; BP diastolic 32–55
[2022-11-13 03:58] LABS: BASOPHILS % (AUTO) 0.2 % (0.0-5.0); EOSINOPHILS % (AUTO) 0.2 % (0.0-8.0); LYMPHOCYTES % (AUTO) 3.5 % (21.0-51.0); MEAN CORPUSCULAR HEMOGLOBIN 30.5 pg (27.0-33.0); MEAN CORPUSCULAR HGB CONC 31.2 g/dL (32.0-36.0); MEAN CORPUSCULAR VOLUME 97.7 fL (79-99); MONOCYTES % (AUTO) 9.4 % (3.0-13.0); NEUTROPHILS % (AUTO) 86.3 % (40.0-77.0); NUCLEATED RED BLOOD CELLS 0.3 % (0.0-0.19); PLATELET COUNT (AUTO) 56 K/uL (130-400); RED BLOOD CELL COUNT(AUTO) 2.56 MIL/uL (4.50-6.20); WHITE BLOOD COUNT (AUTO) 11.8 K/uL (4.8-10.8)
[2022-11-13 04:17] LABS: ALBUMIN 1.7 g/dL (3.5-5.0); CREATININE 4.1 mg/dL (0.5-1.5); MAGNESIUM 1.8 mg/dL (1.80-2.40); PHOSPHORUS 4.9 mg/dL (2.5-4.9); POTASSIUM 3.4 mmol/L (3.5-5.1); TOTAL PROTEIN, SERUM 4.8 g/dL (6.0-8.3)
[2022-11-13] MEDS: METRONIDAZOLE 500MG/100ML BAG 100 ML IVPB SCH ×3 (05:05→22:37)
[2022-11-13] MEDS: INSULIN HUMULIN R 100 UNIT/ML 3ML SQ SCH ×2 (07:30→11:30)
[2022-11-13] MEDS: RIFAXIMIN 550 MG TABLET PO SCH ×2 (09:35→22:36)
[2022-11-13] MEDS: PANTOPRAZOLE 40 MG TAB DR PO SCH ×2 (09:35→22:37)
[2022-11-13] MEDS: Vitamin B Complex/Vit C/Folic Acid PO SCH (09:35)
[2022-11-13] MEDS: MIDODRINE HCL 5 MG TABLET PO SCH ×3 (09:36→22:37)
[2022-11-13] MEDS: LACTULOSE 20 GM/30 ML UDCUP PO SCH ×3 (09:37→22:36)
[2022-11-13] MEDS: METOCLOPRAMIDE 10 MG/2 ML VIAL IVP SCH ×2 (09:38→22:36)
[2022-11-13] MEDS ORDERED: METOCLOPRAMIDE 10 MG/2 ML VIAL IVP SCH ×2 (11:30→16:30)
[2022-11-13 14:07] LABS: HEMATOCRIT 24.8 % (42-54)
[2022-11-13] MEDS: DEXTROSE 50%-WATER 50 ML DISP.SYRIN IV PRN (17:15)
[2022-11-13 22:44] LABS: HEMATOCRIT 24.6 % (42-54)
[2022-11-14] VITALS (21 sets, daily range): BP systolic 99–135; BP diastolic 35–65
[2022-11-14 03:12] LABS: ABG OXYGEN SATURATION 95.8 % (95.0-99.0); ABG PCO2 49 mmHg (35-48)
[2022-11-14 04:04] LABS: BASOPHILS % (AUTO) 0.2 % (0.0-5.0); EOSINOPHILS % (AUTO) 0.1 % (0.0-8.0); HEMATOCRIT 23.8 % (42-54); LYMPHOCYTES % (AUTO) 3.6 % (21.0-51.0); MEAN CORPUSCULAR HEMOGLOBIN 30.8 pg (27.0-33.0); MEAN CORPUSCULAR HGB CONC 31.1 g/dL (32.0-36.0); MEAN CORPUSCULAR VOLUME 99.2 fL (79-99); MONOCYTES % (AUTO) 9.7 % (3.0-13.0); NEUTROPHILS % (AUTO) 85.7 % (40.0-77.0); NUCLEATED RED BLOOD CELLS 0.2 % (0.0-0.19); PLATELET COUNT (AUTO) 65 K/uL (130-400); RED CELL DISTRIBUTION WIDTH 30.2 % (11.0-15.5); WHITE BLOOD COUNT (AUTO) 12.1 K/uL (4.8-10.8)
[2022-11-14 04:20] LABS: ALBUMIN 1.5 g/dL (3.5-5.0); CREATININE 4.8 mg/dL (0.5-1.5); POTASSIUM 3.3 mmol/L (3.5-5.1); TOTAL PROTEIN, SERUM 4.5 g/dL (6.0-8.3)
[2022-11-14] MEDS: METRONIDAZOLE 500MG/100ML BAG 100 ML IVPB SCH ×3 (07:10→21:37)
[2022-11-14] MEDS: PANTOPRAZOLE 40 MG TAB DR PO SCH ×2 (09:00→21:38)
[2022-11-14] MEDS: RIFAXIMIN 550 MG TABLET PO SCH ×2 (09:12→21:38)
[2022-11-14] MEDS: LACTULOSE 20 GM/30 ML UDCUP PO SCH ×3 (09:12→21:37)
[2022-11-14] MEDS: METOCLOPRAMIDE 10 MG/2 ML VIAL IVP SCH ×2 (09:12→21:37)
[2022-11-14] MEDS: MIDODRINE HCL 5 MG TABLET PO SCH ×3 (09:13→21:39)
[2022-11-14] MEDS: Vitamin B Complex/Vit C/Folic Acid PO SCH (09:13)
[2022-11-14] MEDS: DEXTROSE 50%-WATER 50 ML DISP.SYRIN IV PRN (10:40)
[2022-11-14] MEDS: DEXTROSE 10%-WATER 1,000 ML IV SCH (10:41)
[2022-11-14] MEDS ORDERED: ALBUMIN (HUMAN) 25% 100 ML IV ONE (13:55)
[2022-11-14] MEDS: BALSAM PERU/CASTOR OIL 60 GM TUBE TP SCH ×2 (15:25→22:17)
[2022-11-15] VITALS (7 sets, daily range): BP systolic 106–135; BP diastolic 34–61
[2022-11-15 04:11] LABS: HEMATOCRIT 26.2 % (42-54); MEAN CORPUSCULAR HEMOGLOBIN 30.9 pg (27.0-33.0); MEAN CORPUSCULAR HGB CONC 30.2 g/dL (32.0-36.0); MEAN CORPUSCULAR VOLUME 102.3 fL (79-99); RED BLOOD CELL COUNT(AUTO) 2.56 MIL/uL (4.50-6.20); RED CELL DISTRIBUTION WIDTH 30.3 % (11.0-15.5); WHITE BLOOD COUNT (AUTO) 10.9 K/uL (4.8-10.8)
[2022-11-15 04:29] LABS: ALBUMIN 1.9 g/dL (3.5-5.0); CREATININE 3.6 mg/dL (0.5-1.5); MAGNESIUM 1.9 mg/dL (1.80-2.40); POTASSIUM 3.5 mmol/L (3.5-5.1)
[2022-11-15] MEDS: METRONIDAZOLE 500MG/100ML BAG 100 ML IVPB SCH ×3 (06:30→21:46)
[2022-11-15] MEDS: METOCLOPRAMIDE 10 MG/2 ML VIAL IVP SCH ×2 (10:01→21:47)
[2022-11-15] MEDS: LACTULOSE 20 GM/30 ML UDCUP PO SCH ×3 (10:01→21:49)
[2022-11-15] MEDS: RIFAXIMIN 550 MG TABLET PO SCH ×2 (10:01→21:45)
[2022-11-15] MEDS: BALSAM PERU/CASTOR OIL 60 GM TUBE TP SCH ×2 (10:02→21:46)
[2022-11-15] MEDS: Vitamin B Complex/Vit C/Folic Acid PO SCH (10:02)
[2022-11-15] MEDS: PANTOPRAZOLE 40 MG TAB DR PO SCH ×2 (10:02→21:00)
[2022-11-15] MEDS: MIDODRINE HCL 5 MG TABLET PO SCH ×3 (10:02→21:46)
[2022-11-15] MEDS: DEXTROSE 10%-WATER 1,000 ML IV SCH (19:00)
[2022-11-16] VITALS (21 sets, daily range): BP systolic 89–122; BP diastolic 35–69
[2022-11-16 03:38] LABS: BASOPHILS % (AUTO) 0.2 % (0.0-5.0); EOSINOPHILS % (AUTO) 0.5 % (0.0-8.0); LYMPHOCYTES % (AUTO) 4.1 % (21.0-51.0); MEAN CORPUSCULAR HEMOGLOBIN 31.5 pg (27.0-33.0); MEAN CORPUSCULAR HGB CONC 31.6 g/dL (32.0-36.0); MEAN CORPUSCULAR VOLUME 99.6 fL (79-99); MONOCYTES % (AUTO) 10.1 % (3.0-13.0); NEUTROPHILS % (AUTO) 84.5 % (40.0-77.0); PLATELET COUNT (AUTO) 56 K/uL (130-400); RED BLOOD CELL COUNT(AUTO) 2.51 MIL/uL (4.50-6.20); RED CELL DISTRIBUTION WIDTH 29.7 % (11.0-15.5); WHITE BLOOD COUNT (AUTO) 11.1 K/uL (4.8-10.8)
[2022-11-16 04:00] LABS: ALBUMIN 1.8 g/dL (3.5-5.0); CREATININE 4.5 mg/dL (0.5-1.5); MAGNESIUM 1.9 mg/dL (1.80-2.40); PHOSPHORUS 5.3 mg/dL (2.5-4.9); POTASSIUM 3.4 mmol/L (3.5-5.1); TOTAL PROTEIN, SERUM 4.7 g/dL (6.0-8.3)
[2022-11-16] MEDS: METRONIDAZOLE 500MG/100ML BAG 100 ML IVPB SCH ×3 (04:54→22:21)
[2022-11-16] MEDS: METOCLOPRAMIDE 10 MG/2 ML VIAL IVP SCH ×2 (08:59→20:40)
[2022-11-16] MEDS: PANTOPRAZOLE 40 MG TAB DR PO SCH ×2 (09:25→20:40)
[2022-11-16] MEDS: RIFAXIMIN 550 MG TABLET PO SCH ×2 (09:25→20:41)
[2022-11-16] MEDS: Vitamin B Complex/Vit C/Folic Acid PO SCH (09:25)
[2022-11-16] MEDS: MIDODRINE HCL 5 MG TABLET PO SCH ×3 (09:25→20:41)
[2022-11-16] MEDS: LACTULOSE 20 GM/30 ML UDCUP PO SCH ×3 (09:25→20:40)
[2022-11-16] MEDS: BALSAM PERU/CASTOR OIL 60 GM TUBE TP SCH ×2 (09:25→20:42)
[2022-11-16] MEDS: DEXTROSE 10%-WATER 1,000 ML IV SCH ×2 (10:00→16:53)
[2022-11-16] MEDS: ALBUMIN (HUMAN) 25% 100 ML IV PRN (10:50)
[2022-11-16] MEDS: DEXTROSE 50%-WATER 50 ML DISP.SYRIN IV PRN (11:15)
[2022-11-17] VITALS (8 sets, daily range): BP systolic 93–146; BP diastolic 37–97
[2022-11-17 04:03] LABS: HEMATOCRIT 25.1 % (42-54); MEAN CORPUSCULAR HEMOGLOBIN 31.3 pg (27.0-33.0); MEAN CORPUSCULAR HGB CONC 31.1 g/dL (32.0-36.0); MEAN CORPUSCULAR VOLUME 100.8 fL (79-99); RED BLOOD CELL COUNT(AUTO) 2.49 MIL/uL (4.50-6.20); RED CELL DISTRIBUTION WIDTH 29.2 % (11.0-15.5); WHITE BLOOD COUNT (AUTO) 8.3 K/uL (4.8-10.8)
[2022-11-17 04:42] LABS: CREATININE 3.4 mg/dL (0.5-1.5); MAGNESIUM 1.9 mg/dL (1.80-2.40); PHOSPHORUS 4.2 mg/dL (2.5-4.9); POTASSIUM 3.1 mmol/L (3.5-5.1); TOTAL PROTEIN, SERUM 4.7 g/dL (6.0-8.3)
[2022-11-17] MEDS: METRONIDAZOLE 500MG/100ML BAG 100 ML IVPB SCH ×2 (05:01→14:19)
[2022-11-17] MEDS: LACTULOSE 20 GM/30 ML UDCUP PO SCH ×3 (08:57→20:58)
[2022-11-17] MEDS: MIDODRINE HCL 5 MG TABLET PO SCH ×3 (08:57→20:59)
[2022-11-17] MEDS: METOCLOPRAMIDE 10 MG/2 ML VIAL IVP SCH ×2 (08:57→20:58)
[2022-11-17] MEDS: Vitamin B Complex/Vit C/Folic Acid PO SCH (08:57)
[2022-11-17] MEDS: PANTOPRAZOLE 40 MG TAB DR PO SCH ×2 (08:57→20:59)
[2022-11-17] MEDS: RIFAXIMIN 550 MG TABLET PO SCH ×2 (08:57→20:59)
[2022-11-17] MEDS: BALSAM PERU/CASTOR OIL 60 GM TUBE TP SCH ×2 (08:59→20:59)
[2022-11-18] VITALS (21 sets, daily range): BP systolic 94–125; BP diastolic 38–66
[2022-11-18] MEDS: DEXTROSE 10%-WATER 1,000 ML IV SCH (00:39)
[2022-11-18 04:05] LABS: MEAN CORPUSCULAR HEMOGLOBIN 31.2 pg (27.0-33.0); MEAN CORPUSCULAR HGB CONC 30.8 g/dL (32.0-36.0); MEAN CORPUSCULAR VOLUME 101.3 fL (79-99); PLATELET COUNT (AUTO) 55 K/uL (130-400); RED BLOOD CELL COUNT(AUTO) 2.37 MIL/uL (4.50-6.20); RED CELL DISTRIBUTION WIDTH 27.8 % (11.0-15.5); WHITE BLOOD COUNT (AUTO) 7.7 K/uL (4.8-10.8)
[2022-11-18 04:14] LABS: INR 1.42 (0.85-1.15); PROTHROMBIN TIME 15.2 SEC (9.6-11.6)
[2022-11-18 04:18] LABS: BAND NEUTROPHILS % (MANUAL) 4 % (0-2); LYMPHOCYTES % (MANUAL) 10 % (22-44); MONOCYTES % (MANUAL) 8 % (2-9); SEGMENTED NEUTROPHILS % 78 % (40-70)
[2022-11-18 04:19] LABS: MAN.DIFF COMMENT-IMPRESSION MANUAL DIFFERENTIAL; PLATELET MORPHOLOGY COMMENT DECREASED
[2022-11-18 04:26] LABS: ALBUMIN 1.8 g/dL (3.5-5.0); CREATININE 4.1 mg/dL (0.5-1.5); MAGNESIUM 2.1 mg/dL (1.80-2.40); PHOSPHORUS 5.6 mg/dL (2.5-4.9); POTASSIUM 3.4 mmol/L (3.5-5.1); TOTAL PROTEIN, SERUM 4.6 g/dL (6.0-8.3)
[2022-11-18 04:33] LABS: BILIRUBIN,DIRECT 11.7 mg/dL (0.0-0.3)
[2022-11-18] MEDS: Vitamin B Complex/Vit C/Folic Acid PO SCH (09:26)
[2022-11-18] MEDS: MIDODRINE HCL 5 MG TABLET PO SCH ×3 (09:26→21:09)
[2022-11-18] MEDS: PANTOPRAZOLE 40 MG TAB DR PO SCH ×2 (09:26→21:09)
[2022-11-18] MEDS: RIFAXIMIN 550 MG TABLET PO SCH ×2 (09:26→21:09)
[2022-11-18] MEDS: LACTULOSE 20 GM/30 ML UDCUP PO SCH ×3 (09:26→21:09)
[2022-11-18] MEDS: METOCLOPRAMIDE 10 MG/2 ML VIAL IVP SCH ×2 (09:26→21:07)
[2022-11-18] MEDS: BALSAM PERU/CASTOR OIL 60 GM TUBE TP SCH ×2 (09:27→21:09)
[2022-11-18] MEDS: ALBUMIN (HUMAN) 25% 100 ML IV PRN (14:04)
[2022-11-19 03:43] VITALS: BP 101/50
[2022-11-19 07:56] VITALS: BP 105/44
== END 2022-11-19 09:00 | disposition short-term general hospital (02) | DRG 291 ==
LOC: EDH 08:09 → OBSVTOIN 09:57 → EDHIP 09:57 → 3BH 15:20 → 3DH 10-23 17:37 → 2AH 10-29 11:06 → 2BH 10-29 11:46 → 2AH 11-03 16:46 → 4AH 11-08 18:18 → 2AH 11-09 16:14 → 2BH 11-10 08:59 → 2DH 11-10 17:23
PROVIDERS: ADMIT Internal Medicine Critical Care Medicine; ATTEND Internal Medicine Critical Care Medicine
PROC: 0W993ZZ Drainage of Right Pleural Cavity, Percutaneous Approach (ICD-10-PCS; principal; 2022-10-20)
PROC: 30233N1 Transfusion of Nonautologous Red Blood Cells into Peripheral Vein, Percutaneous Approach (ICD-10-PCS; 2022-10-28)
PROC: 02HV33Z Insertion of Infusion Device into Superior Vena Cava, Percutaneous Approach (ICD-10-PCS; 2022-10-29)
PROC: B548ZZA Ultrasonography of Superior Vena Cava, Guidance (ICD-10-PCS; 2022-10-29)
PROC: 5A1D70Z Performance of Urinary Filtration, Intermittent, Less than 6 Hours Per Day (ICD-10-PCS; 2022-10-29)
PROC: 5A1D70Z Performance of Urinary Filtration, Intermittent, Less than 6 Hours Per Day (ICD-10-PCS; 2022-10-30)
PROC: 5A1D70Z Performance of Urinary Filtration, Intermittent, Less than 6 Hours Per Day (ICD-10-PCS; 2022-10-31)
PROC: 5A1D70Z Performance of Urinary Filtration, Intermittent, Less than 6 Hours Per Day (ICD-10-PCS; 2022-11-01)
PROC: 5A1D70Z Performance of Urinary Filtration, Intermittent, Less than 6 Hours Per Day (ICD-10-PCS; 2022-11-02)
PROC: 5A1D70Z Performance of Urinary Filtration, Intermittent, Less than 6 Hours Per Day (ICD-10-PCS; 2022-11-07)
PROC: 0JH63XZ Insertion of Tunneled Vascular Access Device into Chest Subcutaneous Tissue and Fascia, Percutaneous Approach (ICD-10-PCS; 2022-11-09)
PROC: 02H633Z Insertion of Infusion Device into Right Atrium, Percutaneous Approach (ICD-10-PCS; 2022-11-09)
PROC: B5181ZA Fluoroscopy of Superior Vena Cava using Low Osmolar Contrast, Guidance (ICD-10-PCS; 2022-11-09)
PROC: 0W9930Z Drainage of Right Pleural Cavity with Drainage Device, Percutaneous Approach (ICD-10-PCS; 2022-11-09)
PROC: 5A1D70Z Performance of Urinary Filtration, Intermittent, Less than 6 Hours Per Day (ICD-10-PCS; 2022-11-09)
PROC: 5A1D70Z Performance of Urinary Filtration, Intermittent, Less than 6 Hours Per Day (ICD-10-PCS; 2022-11-10)
PROC: 5A1D70Z Performance of Urinary Filtration, Intermittent, Less than 6 Hours Per Day (ICD-10-PCS; 2022-11-11)
PROC: 5A1D70Z Performance of Urinary Filtration, Intermittent, Less than 6 Hours Per Day (ICD-10-PCS; 2022-11-14)
PROC: 5A1D70Z Performance of Urinary Filtration, Intermittent, Less than 6 Hours Per Day (ICD-10-PCS; 2022-11-16)
PROC: 30233M1 Transfusion of Nonautologous Plasma Cryoprecipitate into Peripheral Vein, Percutaneous Approach (ICD-10-PCS; 2022-11-17)
PROC: 5A1D70Z Performance of Urinary Filtration, Intermittent, Less than 6 Hours Per Day (ICD-10-PCS; 2022-11-18)
DX: I13.2 Hypertensive heart and chronic kidney disease with heart failure and with stage 5 chronic kidney disease, or end stage renal disease (principal); I50.33 Acute on chronic diastolic (congestive) heart failure; K76.7 Hepatorenal syndrome; K65.2 Spontaneous bacterial peritonitis; N18.6 End stage renal disease; J96.22 Acute and chronic respiratory failure with hypercapnia; J96.21 Acute and chronic respiratory failure with hypoxia; J90 Pleural effusion, not elsewhere classified; N17.9 Acute kidney failure, unspecified; R18.8 Other ascites; I31.39 Other pericardial effusion (noninflammatory); D61.818 Other pancytopenia; I82.612 Acute embolism and thrombosis of superficial veins of left upper extremity; J93.9 Pneumothorax, unspecified; E87.29 Other acidosis; K76.6 Portal hypertension; E46 Unspecified protein-calorie malnutrition; Z20.822 Contact with and (suspected) exposure to COVID-19; E78.5 Hyperlipidemia, unspecified; G47.33 Obstructive sleep apnea (adult) (pediatric); K74.60 Unspecified cirrhosis of liver; Z95.2 Presence of prosthetic heart valve; K75.81 Nonalcoholic steatohepatitis (NASH); E11.22 Type 2 diabetes mellitus with diabetic chronic kidney disease; D69.59 Other secondary thrombocytopenia; K76.82 Hepatic encephalopathy; E66.09 Other obesity due to excess calories; D63.8 Anemia in other chronic diseases classified elsewhere; E78.00 Pure hypercholesterolemia, unspecified; E88.09 Other disorders of plasma-protein metabolism, not elsewhere classified; I35.2 Nonrheumatic aortic (valve) stenosis with insufficiency; K72.90 Hepatic failure, unspecified without coma; Z74.01 Bed confinement status; Z76.82 Awaiting organ transplant status; Z91.15 Patient's noncompliance with renal dialysis; Z82.49 Family history of ischemic heart disease and other diseases of the circulatory system; Z85.048 Personal history of other malignant neoplasm of rectum, rectosigmoid junction, and anus; Z95.0 Presence of cardiac pacemaker; Z91.14 Patient's other noncompliance with medication regimen; Z91.199 Patient's noncompliance with other medical treatment and regimen due to unspecified reason; Z99.2 Dependence on renal dialysis
CPT/HCPCS: 32551; 32555; 32557; 36415; 36430; 36558; 36600; 71045; 74018; 76700; 80048; 80053; 80061; 80305; 81001; 82040; 82140; 82248; 82435; 82565; 82570; 82728; 82803; 82945; 82947; 82948; 83540; 83550; 83605; 83615; 83735; 83880; 83986; 84100; 84132; 84145; 84156; 84157; 84295; 84443; 84484; 84520; 84550; 85014; 85018; 85025; 85027; 85610; 85730; 86022; 86701; 86704; 86706; 86850; 86900; 86901; 86923; 86927; 87071; 87116; 87205; 87206; 87340; 87390; 87635; 87804; 88108; 88305; 89051; 90935; 93005; 93306; 93356; 93970; 93971; 94660; 94667; 94760; 96365; 96366; 96375; 96376; 97039; A4606; C1729; C1750; C1751; C1752; C1769; C1894; G0378; J0360; J0692; J1644; J1650; J1756; J1940; J2310; J2354; J2543; J2597; J2765; J3010; J3430; J3490; J7050; J7070; P9016; P9017; P9046; P9047; U0003